=== PATIENT | female | born 1940 | race Caucasian/White ===

== ENCOUNTER 2016-10-28 10:02 | Observation (INO) | payer MEDICARE, OTHER ==
[~2016-10-28] VITALS: Ht 154.9 cm; Wt 90.1 kg
[2016-10-28] MEDS ORDERED: ONDANSETRON 4MG/2ML VIAL (J2405) IV ONE (11:45)
[2016-10-28] MEDS ORDERED: MORPHINE 4 MG/ML 1ML SYRINGE IV ONE ×2 (11:45→15:15)
[2016-10-28 11:51] LABS: BASO % 0.3 % (0.0-1.0); EOS # 0.2 K/mm3 (0.0-0.50); EOS % 2.3 % (0.0-3.0); LARGE UNSTAINED CELL # 0.1 K/mm3 (0.0-0.4); LARGE UNSTAINED CELL % 1.1 % (0.0-4.0); LYMPH # 2.3 K/mm3 (1.5-4.5); LYMPH % 25.4 % (24.0-44.0); MEAN CORPUSCULAR HEMOGLOBIN 30.7 pg (27.0-33.0); MEAN CORPUSCULAR HGB CONC 34.9 g/dl (32.0-36.5); MEAN CORPUSCULAR VOLUME 88.1 fl (80.0-96.0); MONO # 0.3 K/mm3 (0.0-0.8); MONO % 3.6 % (0.0-5.0); NEUTROPHILS # 5.9 K/mm3 (1.8-7.7); NEUTROPHILS % 67.4 % (36.0-66.0); PLATELET COUNT, AUTOMATED 229 k/mm3 (150-450); WHITE BLOOD COUNT 8.8 K/mm3 (4.0-10.0)
[2016-10-28 12:06] LABS: ANION GAP 5 MEQ/L (8-16); BLOOD UREA NITROGEN 21 MG/DL (7-18); CALCIUM LEVEL 8.7 MG/DL (8.8-10.2); CARBON DIOXIDE LEVEL 31 MEQ/L (21-32); CHLORIDE LEVEL 105 MEQ/L (98-107); CREATININE FOR GFR 0.72 MG/DL (0.55-1.02); GLOMERULAR FILTRATION RATE > 60.0 (>39); GLUCOSE, FASTING 79 MG/DL (83-110); POTASSIUM SERUM 3.8 MEQ/L (3.5-5.1); SODIUM LEVEL 141 MEQ/L (136-145)
--- NOTE | 2016-10-28 12:10 | REP ---
Clinical: Left lower extremity pain. Comparison: 09/25/2013. Technique: Bland scale and color Doppler evaluation using linear high frequency transducer. Findings: There is nonocclusive thrombus in the common femoral vein and proximal femoral vein which is nonspecific and can not exclude acute versus chronic deep venous thrombosis. Ultrasound examination of the left lower extremity deep venous structures from the common femoral vein to the popliteal vein demonstrates otherwise normal compressibility, flow and wave patterns in response to respiration and augmentation. Impression: Nonocclusive thrombus in the common femoral vein and proximal superficial femoral vein corresponding to areas of previous deep venous thrombosis on examination dated 09/25/2013. These findings are nonspecific and acute versus chronic DVT cannot be excluded. Signed by Jason Neville MD 10/28/2016 12:01 P
[2016-10-28 13:19] LABS: ERYTHROCYTE SEDIMENTATION RATE 48 mm/hr (0-30)
[2016-10-28] MEDS ORDERED: RIVAROXABAN 10 MG TAB (XARELTO) PO ONE (15:15)
[2016-10-28] MEDS ORDERED: BISACODYL 10 MG SUPP PR PRN (16:00)
[2016-10-28] MEDS ORDERED: ONDANSETRON 4MG/2ML VIAL (J2405) IV PRN (16:00)
[2016-10-28] MEDS ORDERED: BROM0.07 OD (16:14)
[2016-10-28] MEDS ORDERED: ASPI81TA7 PO (16:14)
[2016-10-28] MEDS ORDERED: VITA100066 PO (16:14)
[2016-10-28] MEDS ORDERED: OCUVTAB PO (16:14)
[2016-10-28] MEDS ORDERED: ZETI10TA2 PO (16:14)
[2016-10-28] MEDS ORDERED: REFRSOL OU (16:14)
[2016-10-28] MEDS ORDERED: IRBE150T14 PO (16:14)
[2016-10-28] MEDS ORDERED: PRED1SUS OD (16:14)
[2016-10-28] MEDS ORDERED: BESI0.6S OD (16:14)
[2016-10-28] MEDS ORDERED: VITA10002 PO (16:14)
[2016-10-28] MEDS ORDERED: PANT40TA2 PO (16:14)
--- NOTE | 2016-10-28 18:02 | HPE ---
DATE OF ADMISSION: 10/28/2016 PRIMARY CARE PROVIDER: Aishwarya Tidwell NP CHIEF COMPLAINT: Leg and back pain. HISTORY OF PRESENT ILLNESS: Ms. García is a 76-year-old female with past medical history significant for deep venous thrombosis (DVT) in 2013, hypertension, spinal stenosis, hyperparathyroidism, hypercholesterolemia, gastroesophageal reflux disease and fibromyalgia who presents to the emergency department complaining of leg and back pain. The patient reports that she has history of spinal stenosis and usually certain activities will aggravate her pain. She reports that on Friday she decided to shampoo the carpet after her dog made a mass and the next day she woke up with bilateral back pain as well as pain radiating down her left lower extremity. She does have history of occasional muscle spasms and when this occurs the pain usually radiates down the posterior leg. However, she noticed that she had sharp burning pain in the anterior left leg into her foot which is similar to when she had her previous DVT in 2013. She reports that she took Advil as well as Flexeril which did not provide any significant benefit. She reports that she had some old Percocet from about a year and a half ago after having surgery and was taking that every 4 hours. She states that it did take the edge off until she moved and then her pain was further aggravated. Reports that it was difficult to ambulate. When she was previously diagnosed with the DVT she reports that she completed about 6 months of anticoagulation. She denies any increased swelling in the lower extremity. No increased weakness. However, the pain makes it difficult to ambulate. She has chronic urinary incontinence, stress induced. No change in her bladder function. Bowels have been moving normally without any incontinence or retention. She denies any saddle anesthesia or paresthesias. No fevers, chills, chest pain / pressure, palpitations, shortness of breath, nausea, vomiting, abdominal pain, diarrhea, hematochezia, melena, rash, any lesions or syncope. The patient denies any periods of immobility. No history of malignancy. No recent travel and no sick contacts. In the emergency department she was given two doses of morphine, Zofran as well as Xarelto. Laboratory assessment revealed elevated ESR at 48, mildly elevated CRP of 1.17. She had an ultrasound of the lower extremity which revealed a nonocclusive thrombus in the common femoral vein and proximal superficial femoral vein corresponding to areas of previous DVT. Findings could not specify if this was acute versus chronic. Given her significant pain hospitalist service was called to admit. PAST MEDICAL HISTORY: 1. DVT in 2013, treated with 6-month anticoagulation with Xarelto. 2. Hypertension. 3. History of spinal stenosis and disc bulging. 4. History of hyperparathyroidism status post parathyroidectomy. 5. History of fibromyalgia. 6. Hypercholesterolemia. 7. History of nephrolithiasis. PAST SURGICAL HISTORY: 1. Parathyroidectomy. 2. Cholecystectomy. 3. Appendectomy. 4. Tonsillectomy. 5. Hysterectomy. 6. Left knee surgery for a meniscus injury. 7. Plantar fasciotomy. 8. Hemorrhoidectomy. 9. Left cataract surgery on 10/22/2016. HOME MEDICATIONS: - aspirin 81 mg by mouth daily - vitamin D 1000 units by mouth daily - vitamin B12 1000 mcg by mouth daily - Zetia 10 mg by mouth daily - multivitamins one tablet by mouth daily - Protonix 40 mg by mouth daily - prednisolone acetate one drop in left eye four times daily - Besivance one drop in left eye three times daily - BromSite one drop twice daily - irbesartan/hydrochlorothiazide one tablet by mouth daily - Refresh Optive solution one drop in each eye as needed ALLERGIES: VICODIN (hives), CODEINE SULFATE (rash), QUINOLONE (reaction unknown), SULFA DRUGS (reaction unknown). SOCIAL HISTORY: The patient denies any tobacco use. No alcohol or illicit drug use. Lives with her . One dog and two cats in the home. No recent travel outside of [place]. She does occasionally travel to [place] to see her daughter but has not done this recently. FAMILY HISTORY: Son has history of diabetes. Mother and father had Alzheimer's disease. Father had history of diabetes. She had a grandmother with heart issues. REVIEW OF SYSTEMS: GENERAL: No fevers, chills, sweats, significant weight changes. HEENT: No headache, lightheadedness, dizziness. No blurry or double vision. No acute changes to vision or hearing. HEART: Denies any chest pain / pressure, palpitations, shortness of breath with exertion. No orthopnea or paroxysmal nocturnal dyspnea. PULMONARY: No shortness of breath or cough. No hemoptysis. GASTROINTESTINAL: No nausea or vomiting, diarrhea, constipation, abdominal pain, hematochezia or melena. GENITOURINARY: No change in urinary frequency. No dysuria or hematuria. She does give history of recently passing a kidney stone and had microscopic hematuria at that time. ENDOCRINE: No history of diabetes but does have history of parathyroid adenomas for which she underwent parathyroidectomy. MUSCULOSKELETAL: Positive for lower back pain as well as left leg pain. INTEGUMENT: No unusual rashes or skin lesions. NEUROLOGIC: No paresthesias. No increased weakness. No syncope. No history of CVA. PHYSICAL EXAMINATION: VITAL SIGNS: Temperature 97.0, pulse 88, respiratory rate 16, blood pressure 143/65, pulse oximetry 97% on room air. GENERAL: The patient is alert and oriented, in no acute distress. HEENT: Normocephalic, atraumatic. Extraocular muscles are intact. Pupils are equally round and reactive to light. No scleral icterus. Moist mucosa. NECK: Supple. No cervical lymphadenopathy. No thyromegaly appreciated. HEART: Normal S1, S2. Regular rate and rhythm. I do not appreciate a murmur. LUNGS: Clear to auscultation bilaterally. No rales, rhonchi or wheezing. ABDOMEN: Obese, soft, nontender. Bowel sounds are present. No rebound, guarding or rigidity. EXTREMITIES: No cyanosis. No significant lower extremity edema. Positive pedal pulses bilaterally. SKIN: Warm and dry. No rashes noted. NEUROLOGIC: No focal deficits. Cranial nerves II-XII are grossly intact. Muscle strength 5/5 bilaterally. Sensation intact. Good tone. Reflexes symmetric. LABORATORY DATA: WBC 8.8, hemoglobin 15.2, hematocrit 43.7, platelet count 229, ESR 48, sodium 141, potassium 3.8, chloride 105, carbon dioxide 31, anion gap 5, BUN 21, creatinine 0.72, GFR greater than 60, fasting glucose 79, calcium 8.7, C-reactive protein 1.17. IMAGING STUDIES: The patient had a vascular ultrasound of the left lower extremity which revealed a nonocclusive thrombus in the common femoral vein and proximal superficial femoral vein corresponding to areas of previous DVT on exam dated September 2013. These findings are nonspecific and acute versus chronic DVT could not be excluded. ASSESSMENT/PLAN: 1. Left lower extremity deep venous thrombosis (DVT). The patient will be placed on Xarelto. She has history of previous DVT in 2013 for which she was bridged with Lovenox and then started on Xarelto. She reports that she completed about 6 months of treatment. Ultrasound could not exclude between acute and chronic DVT. Pain medication as needed. 2. Acute on chronic back pain. The patient reports history of spinal stenosis and disc bulging. She reports that she cleaned her carpet on Friday and then her back and leg pain started on . Will obtain an MRI of the lumbar spine. Pain medication as needed. 3. Hypertension. The patient takes irbesartan/hydrochlorothiazide. 4. Hypercholesterolemia. Continue with Zetia. 5. History of hyperparathyroidism with parathyroid adenoma status post parathyroidectomy. 6. History of fibromyalgia. Stable. 7. Gastroesophageal reflux disease (GERD). Continue with Protonix. 8. Deep venous thrombosis (DVT) prophylaxis. The patient is on Xarelto. 9. Code status. The patient reports that she has a DO NOT RESUSCITATE and will have her bring that in. Patient will be admitted as observation to medical/surgical. Dr. Zazueta to take over her care in the morning. My preceptor for this patient encounter was Dr. Jovanna Manning. The preceptor was physically present in the building during the encounter and was fully available. As needed, all aspects of the patient interview, examination, medical decision making process, and medical care plan development were reviewed and approved by the preceptor. The preceptor is aware and concurs with the plan as stated in the body of this note and will attest to such by her cosignature.
[2016-10-28 18:45] VITALS: BP 157/67
[2016-10-28] MEDS: PERCOCET 5MG/325MG TAB PO PRN (19:20)
[2016-10-28 19:41] LABS: INR 1.5
[2016-10-28] MEDS: BESIFLOXACIN 0.6% OD SCH ×2 (20:37→20:40)
[2016-10-28] MEDS: SENOKOT S TAB PO SCH (20:37)
[2016-10-28] MEDS: prednisoLONE ACET 1% OPHTH SUSP 5ML OD SCH (20:37)
[2016-10-28] MEDS: BROMFENAC 0.075% OD SCH (20:38)
[2016-10-28] MEDS ORDERED: ENTER DRUG NAME HERE (PATIENT'S OWN MED) OD SCH ×2 (21:00)
[2016-10-28 22:00] VITALS: BP 132/72
[2016-10-29] MEDS: PERCOCET 5MG/325MG TAB PO PRN ×4 (05:38→19:56)
[2016-10-29 06:00] VITALS: BP 132/70
[2016-10-29 06:56] LABS: MEAN CORPUSCULAR HEMOGLOBIN 29.9 pg (27.0-33.0); MEAN CORPUSCULAR HGB CONC 33.6 g/dl (32.0-36.5); MEAN CORPUSCULAR VOLUME 89.1 fl (80.0-96.0); RED CELL DISTRIBUTION WIDTH 13.3 % (11.5-14.5); WHITE BLOOD COUNT 8.1 K/mm3 (4.0-10.0)
[2016-10-29 07:01] LABS: INR 1.25
[2016-10-29 07:14] LABS: ANION GAP 5 MEQ/L (8-16); BLOOD UREA NITROGEN 18 MG/DL (7-18); CALCIUM LEVEL 8.4 MG/DL (8.8-10.2); CARBON DIOXIDE LEVEL 30 MEQ/L (21-32); CHLORIDE LEVEL 103 MEQ/L (98-107); GLOMERULAR FILTRATION RATE > 60.0 (>39); GLUCOSE, FASTING 105 MG/DL (83-110); POTASSIUM SERUM 4.4 MEQ/L (3.5-5.1); SODIUM LEVEL 138 MEQ/L (136-145)
[2016-10-29 08:02] VITALS: BP 132/70
[2016-10-29] MEDS: SENOKOT S TAB PO SCH ×2 (08:02→19:54)
[2016-10-29] MEDS: EZETIMIBE 10 MG TAB (ZETIA) PO SCH (08:02)
[2016-10-29] MEDS: PANTOPRAZOLE 40MG TAB (PROTONIX) PO SCH (08:02)
[2016-10-29] MEDS: RIVAROXABAN 15 MG TAB (XARELTO) PO SCH ×2 (08:02→17:36)
[2016-10-29] MEDS: IRBESARTAN 75MG TABLET PO SCH (08:02)
[2016-10-29] MEDS: prednisoLONE ACET 1% OPHTH SUSP 5ML OD SCH ×4 (08:05→19:58)
[2016-10-29] MEDS: BESIFLOXACIN 0.6% OD SCH ×3 (08:06→19:57)
[2016-10-29] MEDS: BROMFENAC 0.075% OD SCH ×2 (08:06→19:56)
--- NOTE | 2016-10-29 12:12 | IPNPDOC ---
Subjective Date Seen The patient was seen on 10/29/16. Subjective Chief Complaint/HPI The patient is a 76-year-old female admitted with a reason for visit of Central Stenosis Of Spinal Canal,Dvt. Objective Physical Examination General Exam: Positive: Alert, Cooperative, No Acute Distress Eye Exam: Positive: Conjunctiva & lids normal, EOMI, Negative: Sclera icteric ENT Exam: Positive: Mucous membr. moist/pink, Pharynx Normal Neck Exam: Positive: Supple, Negative: thyromegaly Chest Exam: Positive: Clear to auscultation, Normal air movement Heart Exam: Positive: Rate Normal, Regular Rhythm, Normal S1, Normal S2, Negative: Murmurs Abdomen Exam: Positive: Normal bowel sounds, Soft, Negative: Tenderness Extremity Exam: Positive: Normal pulses, Tenderness (left lower extremity), Negative: Cyanosis, Edema Skin Exam: Positive: Nl turgor and temperature, Negative: Rash Neuro Exam: Positive: Normal Speech, Cranial Nerves 3-12 NL Psych Exam: Positive: Mental status NL, Oriented x 3 Assessment /Plan Problems (1) DVT (deep venous thrombosis) Status: Acute Problem Specific Plan: Monitor Clinically Problem Text: * Has previous history of DVT in 2013, completed 6 months for Xarelto * Vascular ultrasound performed on 10/28 revealed nonocclusive thrombus in the common femoral vein and proximal superficial femoral vein corresponding areas of previous DVT on exam stated in 2013. Findings are nonspecific and acute versus chronic DVT could not be excluded * Continue with Xarelto * Hypercoagulable workup pending (2) Acute exacerbation of chronic low back pain Status: Acute Problem Specific Plan: Monitor Clinically Problem Text: * Patient reports that pain developed after she cleaned the carpet. * Has history of spinal stenosis and disc bulging * Awaiting results of lumbar MRI * Pain medication as needed. Physical therapy. * No neurological deficits. No paresthesias or saddle anesthesia. No bowel or bladder dysfunction (3) History of spinal stenosis Status: Chronic Problem Specific Plan: Monitor Clinically Problem Text: * Patient reports increased back pain * Awaiting MRI results (4) Hypertension Status: Chronic Problem Specific Plan: Monitor Clinically Problem Text: * Continue irbesartan (5) Hypercholesterolemia Status: Chronic Problem Specific Plan: Monitor Clinically Problem Text: * Continue Zetia (6) History of hyperparathyroidism Status: Chronic Problem Specific Plan: Monitor Clinically Problem Text: * With history of parathyroid adenoma status post parathyroidectomy (7) GERD (gastroesophageal reflux disease) Status: Chronic Problem Specific Plan: Monitor Clinically Problem Text: * Continue Protonix (8) History of left cataract surgery Status: Chronic Problem Specific Plan: Monitor Clinically Problem Text: * Continue with eyedrops to left eye Plan/VTE VTE Prophylaxis Ordered?: Yes (xarelto) VS, I&O, 24H, Fishbone Vital Signs/I&O Vital Signs Date Time Temp Pulse Resp B/P (MAP) Pulse Ox O2 Delivery O2 Flow Rate FiO2 10/29/16 10:38 18 Room Air 10/29/16 08:02 132/70 10/29/16 06:00 98.3 89 98 I&O- Last 24 Hours up to 6 AM 10/29/16 06:00 Intake Total 175 ml Output Total 200 ml Balance -25 ml Laboratory Data CBC/BMP Laboratory Tests 10/29/16 06:29 Red Blood Count 4.50, Mean Corpuscular Volume 89.1, Mean Corpuscular Hemoglobin 29.9, Mean Corpuscular Hemoglobin Concent 33.6, Red Cell Distribution Width 13.3 , Calcium Level 8.4 L GME ATTESTATION GME ATTESTATION My preceptor for this patient encounter was physically present in the building during the encounter and was fully available. As needed, all aspects of the patient interview, examination, medical decision making process, and medical care plan development were reviewed and approved by the preceptor. Preceptor is aware and concurs with the plan as stated in the body of this note and will attest to such by his/her cosignature. ANNETTE COTA DO October 29, 2016 12:12
[2016-10-29 14:00] VITALS: BP 118/60
--- NOTE | 2016-10-29 14:40 | REP ---
MRI LUMBAR SPINE WITHOUT CONTRAST: HISTORY: Back pain. COMPARISON: 09/23/2012 Decreased signal intensity on T2-weighted images is present in the lumbar intervertebral discs. The discs are decreased in height. These findings are consistent with disc degeneration. There is no disc bulge or herniation at the L1-2 and L5-S1 levels. There is hypertrophy of the posterior articulating facets at the L5-S1 level. The nerves exit the neural foramina without compression. Fluid is present in the left L5-S1 facet joint. A diffuse disc bulge is present at the L2-3 level. There is hypertrophy of the ligamenta flava and posterior articulating facets. These findings produce minimal central canal stenosis. The L2 nerves exit the neural foramina without compression. A diffuse disc bulge is present at the L3-4 level. There is hypertrophy of the ligamenta flava and posterior articulating facets. These findings produce minimal central canal stenosis. The L3 nerves exit the neural foramina without compression. A diffuse disc bulge is present at the L4-5 level. There is hypertrophy of the ligamenta flava and posterior articulating facets. There are 5 mm of grade 1 spondylolisthesis of L4 on 5. These findings produce mild central canal stenosis. The L4 nerves exit the neural foramina without compression. Fluid is present in the left L4-5 facet joint. The conus medullaris is normal in appearance terminating at the level of the L1 vertebral body. Increased signal intensity on T2-weighted images is present in the end plates of the L2 through L4 vertebral bodies. This represents degenerative change. IMPRESSION: 1. Minimal central canal stenosis at the L2-3 and L3-4 levels secondary to disc bulge, ligamentous and facet hypertrophy. 2. Mild central canal stenosis at the L4-5 level secondary to disc bulge, ligamentous and facet hypertrophy and grade 1 spondylolisthesis. There is compression of the right L4 nerve in the neural foramen. There is no significant change compared to the previous study. Signed by James Quintero MD 10/29/2016 11:56 A
[2016-10-29 22:00] VITALS: BP 129/64
[2016-10-30] MEDS: PERCOCET 5MG/325MG TAB PO PRN ×2 (03:43→08:35)
[2016-10-30 06:00] VITALS: BP 106/52
[2016-10-30 06:29] LABS: MEAN CORPUSCULAR HEMOGLOBIN 30.6 pg (27.0-33.0); MEAN CORPUSCULAR HGB CONC 34.5 g/dl (32.0-36.5); MEAN CORPUSCULAR VOLUME 88.7 fl (80.0-96.0); WHITE BLOOD COUNT 6.7 K/mm3 (4.0-10.0)
[2016-10-30 06:39] LABS: ANION GAP 7 MEQ/L (8-16); BLOOD UREA NITROGEN 20 MG/DL (7-18); CALCIUM LEVEL 7.8 MG/DL (8.8-10.2); CARBON DIOXIDE LEVEL 28 MEQ/L (21-32); CHLORIDE LEVEL 106 MEQ/L (98-107); GLOMERULAR FILTRATION RATE > 60.0 (>39); GLUCOSE, FASTING 95 MG/DL (83-110); POTASSIUM SERUM 3.9 MEQ/L (3.5-5.1); SODIUM LEVEL 141 MEQ/L (136-145)
[2016-10-30] MEDS: PANTOPRAZOLE 40MG TAB (PROTONIX) PO SCH (08:36)
[2016-10-30] MEDS: SENOKOT S TAB PO SCH (08:36)
[2016-10-30] MEDS: EZETIMIBE 10 MG TAB (ZETIA) PO SCH (08:36)
[2016-10-30] MEDS: RIVAROXABAN 15 MG TAB (XARELTO) PO SCH (08:36)
[2016-10-30] MEDS: BROMFENAC 0.075% OD SCH (08:38)
[2016-10-30] MEDS: IRBESARTAN 75MG TABLET PO SCH (08:42)
[2016-10-30] MEDS ORDERED: PRED1SUS OD (08:59)
[2016-10-30] MEDS ORDERED: XARE15TA PO (08:59)
[2016-10-30] MEDS ORDERED: XARE20TA PO (08:59)
[2016-10-30] MEDS ORDERED: PERCOCET PO (08:59)
[2016-10-30] MEDS ORDERED: prednisoLONE ACET 1% OPHTH SUSP 5ML OD SCH (09:00)
--- NOTE | 2016-10-30 17:24 | DSES ---
DATE OF ADMISSION: 10/28/2016 DATE OF DISCHARGE: 10/30/2016 DISCHARGE DIAGNOSES: 1. Deep vein thrombosis (DVT) of left lower extremity. 2. Chronic back pain. 3. History of spinal stenosis. 4. Hypertension. 5. Hypercholesterolemia. 6. Gastroesophageal reflux disease (GERD). 7. History of hyperparathyroidism status post parathyroidectomy. 8. History of left cataract surgery. 9. History of fibromyalgia. DISCHARGE MEDICATIONS: - Xarelto 50 mg by mouth twice daily times 21 days - Xarelto 20 mg daily - Percocet one tablet by mouth every four hours as needed - BromSite one drop in eye twice daily - vitamin D 1000 units by mouth daily - vitamin B12 1000 mcg by mouth daily - Zetia 10 mg by mouth daily - irbesartan/hydrochlorothiazide one tablet by mouth daily - multivitamin one tablet by mouth daily - Protonix 40 mg by mouth daily - Refresh Optive one drop in each eye as needed - prednisolone one drop in left eye four times daily DISCONTINUED MEDICATIONS: - Besivance eye drops - aspirin 81 mg daily BRIEF HOSPITAL COURSE: The patient presented to the emergency department with complaints of leg pain and back pain. She reports a history of spinal stenosis and usually certain activities will aggravate her back pain. She reports that Friday she decided to shampoo the renard and the next day her pain was exacerbated. She also reported sharp, burning pain in the anterior left leg down to her foot with history of previous deep vein thrombosis (DVT) in 2013. She took Advil as well as Flexeril which did not provide any significant relief. She denied any increased swelling in the lower extremity. No increase weakness. No bowel or bladder changes. No saddle anesthesia or paresthesias. No fever, chills, shortness of breath, nausea, vomiting, abdominal pain, diarrhea, chest pain, or any other acute symptoms. In the emergency department, she was given pain medication, antiemetics, and admitted to the hospital. She had ultrasound of the lower extremity performed which revealed nonocclusive thrombus in the common femoral vein and proximal superficial vein corresponding to areas of previous DVT. The patient was initiated on Xarelto. She also had an MRI of her lumbar spine which revealed minimal central canal stenosis at L2-3 and L3-4. Mild central canal stenosis at L4-5 secondary to disc bulging, hypertrophy and grade 1 spondylolisthesis. There was compression of the right L4 nerve in the neuroforamen. No significant change from previous study. On the day of admission, the patient reports that her back pain has significantly improved. She did continue to have some leg pain. No significant swelling or weakness. She denied any fevers, chills, chest pain/pressure, palpitations, shortness of breath, nausea, vomiting, abdominal pain, diarrhea, headache, dizziness. LABORATORY DATA ON DISCHARGE: WBC 6.7, hemoglobin 13.7, hematocrit 39.6, platelet count 225. Sodium 141, potassium 3.9, chloride 106, carbon dioxide 28, anion gap 7, BUN 20, creatinine 0.8, GFR greater than 60, fasting glucose 95, calcium 7.8. IMAGING STUDIES: As stated above. PHYSICAL EXAMINATION: VITAL SIGNS: Temperature 99.1, pulse 81, respiratory rate 15, blood pressure 106/52, pulse oximetry 93% on room air. GENERAL: The patient is alert and oriented times three, in no acute distress. HEENT: Normocephalic, atraumatic. Extraocular muscles are intact. Moist mucosa. NECK: Supple. No cervical lymphadenopathy. No thyromegaly. HEART: Normal S1, S2, regular rate and rhythm. No murmur appreciated. LUNGS: Clear to auscultation bilaterally. No rales, rhonchi or wheezing. ABDOMEN: Soft, nontender, nondistended. Positive bowel sounds. EXTREMITIES: No cyanosis or edema. Positive pedal pulses bilaterally. Left anterior thigh is tender to palpation. SKIN: Warm and dry. No rashes noted. NEUROLOGIC: No focal deficits. Cranial nerves II-XII are grossly intact. Motor and sensation intact. DISCHARGE INSTRUCTIONS: The patient is discharged in stable condition. She is to followup with her primary care physician within one week. Activity as tolerated. Low-sodium, low-cholesterol diet. Return to the emergency department with any worsening or recurring symptoms. She is to followup with her primary care physician in terms of resuming her aspirin. Followup with ophthalmology for eye drop care and rescheduling her other cataract surgery. THINGS TO FOLLOWUP ON: Hypercoagulable workup is still pending. DISCHARGE TIME: Greater than 30 minutes. My preceptor for this patient encounter was Dr. Alia Zazueta. The preceptor was physically present in the building during the encounter and was fully available as needed. All aspects of the patient interview, examination, medical decision making process, and medical care plan development were reviewed and approved by the preceptor. The preceptor is aware and concurs with the plan as stated in the body of this note and will attest to such by his/her co-signature.
== END 2016-10-30 11:41 | disposition home or self-care (01) ==
LOC: EDSEX 10:02 → EDBD 10:02 → M ED 11:32 → M ED INP 15:57 → M MSPAV 18:35
PROVIDERS: ADMIT Internal Medicine Nephrology; ATTEND Internal Medicine
DX: I82.412 Acute embolism and thrombosis of left femoral vein (principal); M48.06 Spinal stenosis, lumbar region; I10 Essential (primary) hypertension; E78.00 Pure hypercholesterolemia, unspecified; E21.3 Hyperparathyroidism, unspecified; K21.9 Gastro-esophageal reflux disease without esophagitis; Z79.899 Other long term (current) drug therapy; M79.7 Fibromyalgia; Z88.2 Allergy status to sulfonamides; Z88.5 Allergy status to narcotic agent
CPT/HCPCS: 36415; 72148; 80048; 81001; 81240; 81241; 84311; 85025; 85027; 85300; 85301; 85303; 85305; 85598; 85610; 85613; 85652; 85730; 86140; 86147; 93971; 96374; 96375; 96376; 97161; 99284; G0378; G8978; G8979; G8980; J2405

== ENCOUNTER → 2017-06-16 | Outpatient (REF) | payer OTHER | LOC: M LAB REF 16:25 | DX: R31.9 Hematuria, unspecified (principal) ==

== ENCOUNTER → 2018-02-17 | Outpatient (REF) | payer OTHER | LOC: M LAB REF 18:05 | DX: L82.1 Other seborrheic keratosis (principal); L72.0 Epidermal cyst; D23.12 Other benign neoplasm of skin of left eyelid, including canthus ==

== ENCOUNTER → 2018-09-10 | Outpatient (REF) | payer OTHER ==
[~2018-09-10] MED LIST: ASPI1TAB15 PO; BESI0.6S OD; BROM0.07 OD; IRBE150T14 PO; OCUVTAB PO; PANT40TA3 PO; PERCOCET PO; PRED1SUS2 OD; REFRSOL OU; VITA10002 PO; VITA100066 PO; XARE15TA PO; XARE20TA PO; ZETI10TA30 PO
== END ==
LOC: M LAB REF 12:53
PROVIDERS: ATTEND Nurse Practitioner Adult Health
DX: R31.9 Hematuria, unspecified (principal)

== ENCOUNTER → 2020-02-23 | Outpatient (REF) | payer OTHER ==
[~2020-02-23] MED LIST changes: +ASPI-546 PO; -ASPI1TAB15 PO; +CYAN100049 PO; +PANT40TA29 PO; -PANT40TA3 PO; -VITA10002 PO; +ZETI10TA16 PO; -ZETI10TA30 PO
== END ==
LOC: M LAB REF 09:49
PROVIDERS: ATTEND Internal Medicine Gastroenterology
DX: K59.1 Functional diarrhea (principal); R10.31 Right lower quadrant pain; K21.9 Gastro-esophageal reflux disease without esophagitis

== ENCOUNTER 2020-07-25 13:49 | Emergency (ER) | payer OTHER ==
[~2020-07-25] VITALS: Ht 154.9 cm; Wt 89.1 kg
[2020-07-25] MEDS ORDERED: ACET-908 PO (14:06)
[2020-07-25] MEDS ORDERED: ACET-683 PO (14:06)
[2020-07-25] MEDS ORDERED: CARI1TAB7 (14:06)
[2020-07-25] MEDS ORDERED: PERCOCET 5MG/325MG TAB PO ONE (14:30)
[2020-07-25] MEDS ORDERED: methocarbamoL 750 MG TAB PO ONE (14:30)
--- NOTE | 2020-07-25 14:58 | REP ---
INDICATION: inc pain/r/o compression fx. COMPARISON: Comparison radiographs are from 13 February 2012.. TECHNIQUE: AP and lateral views of the lumbar spine are augmented by a lateral spot at L5-S1. FINDINGS: Lumbar vertebral body heights are preserved on lateral radiograph. No fracture or collapse is seen. There are degenerative disc changes with narrowing and spurring associated with the 4 5, 3 4, and 2 3 disc spaces. This is only slightly more prominent than on the 28/05 prior radiograph. There are clips in right upper quadrant. A moderate levoconvex lumbar scoliotic curve is seen. There is osteoarthritic facet hypertrophy and sclerosis at L4-5 and L5-S1 bilaterally and on the right at L3-4. The sacrum and SI joints are intact. Psoas margins are symmetric. IMPRESSION: No evidence of lumbar spine fracture. Levoconvex scoliotic curvature. Degenerative spondylosis changes. <Electronically signed by Sridhar Majano > 07/25/20 [id number]
--- NOTE | 2020-07-25 15:13 | REP ---
INDICATION: pain/hx dvt in same leg. COMPARISON: Comparison study October [id number].. TECHNIQUE: Left lower extremity duplex venous ultrasound is performed. FINDINGS: The deep veins are anechoic and fully compressible from the groin to the popliteal fossa in the left lower extremity. Color flow imaging is homogeneous. Spectral Doppler interrogation demonstrates intact respiratory variation in flow and normal manual augmentation of flow. There is no evidence of deep vein thrombosis. IMPRESSION: Negative left lower extremity duplex venous ultrasound. No evidence of deep vein thrombosis. <Electronically signed by Sridhar Majano > 07/25/20 [id number]
--- OUTSIDE RECORDS SUMMARY | 2020-07-25 15:14 | CCD | Continuity of Care Document ---
Author Author Raven Tidwell Organization Unknown Address [address] [address] Phone [phone] Care Team Providers Care Repairer Shoe Sticks Name Role Phone Aishwarya Tidwell AUTM [phone] Makayla Alcazar MD AUTM [phone] Rosaline Mercado - Gastroenterolgy AUTM Problems Active Problems Provider Date Osteoarthritis TYRESE Gonzalez Onset: 01/30/2011 Benign essential hypertension TYRESE Gonzalez Onset: Pure hypercholesterolemia TYRESE Gonzalez Onset: 2010 Acute upper respiratory infection TYRESE Gonzalez Onset : 01/30/2011 Depressive disorder TYRESE Gonzalez Onset: 01/30/2011 Insomnia TYRESE Gonzalez Onset: 07/09/2011 Essential hypertension TYRESE Gonzalez Onset: 6 Social History Type Date Description Comments Sex Unknown ETOH Use Never used alcohol Tobacco Use Start: Unknown Patient has never smoked Allergies, Adverse Reactions, Alerts Active Allergies Reaction Severity Comments Date Codeine HIVES 08/29/2010 Sulfa Rash 10/18/2016 Vicodin Hives 10/18/2016 Medications Active Medications SIG Qnty Indications Ordering Provide r Date Heplisav-B 20mcg/0.5 ML Soln Prefill Syringe administer 0.5 ml Im, repeat in 1 month .500ml N TYRESE Koch 05/08/2020 Livalo 2mg Tablets 1 b y mouth every day 90tabs TYRESE Gonzalez 05/02/2020 Carisoprodol 350mg Tablets take one tablet by mouth two times a day as needed dx: m54.5 60tabs Selina Tidwell, ANP 04/11/2020 Toprol XL 25mg Tablets ER 24HR 1/2 by mouth every day 90tabs Aishwarya Tidwell, TYRESE 08/24/2018 Ketoconazole 2% Cream twice a day to rash for 14 days 60gm Aishwarya Tidwell, ANP 06/24/2017 Xarelto 10mg Tablets T marcelina 1 Tablet Daily 90tabs Aishwarya Tidwell, TYRESE 06/16/2017 Irbesartan-Hydrochlorothiazide 150-12.5mg Tablets 1 by mouth every day 30tabs Joe Emmanuel M.D. 03/26/2017 Compression BK Stockings wear daily 2pr Aishwarya Madrid icer, [facility] 01/02/2017 Vitamin D3 Super Strength 2000Unit Tablets 1 po qd Aishwarya Tidwell, TYRESE 013 Ocuvite Adult 50+ Capsules one pill po daily Unknown Welchol 625mg Tablets 2-3/day w/food Unknown Protonix 40mg Tablets DR 1 by mouth every morning Unknown History Medications Atorvastatin Calcium 40mg Tablets 1 by mouth every day 90tabs Aishwarya Tidwell, TYRESE 02/26/2020 - 02/28/2020 Medications Administered in Office Medication SIG Qnty Indications Ordering Provider Date Immunization Adminstration,1 Vaccine/Tox oid Injection Aishwarya Tidwell, TYRESE 018 Administration Of Flu Vaccine Inj ection Aishwarya Tidwell, TYRESE 04/13/2003 Immunizations CPT Code Status Date Vaccine Lot # U-Flu Given 02/12/2020 Influenza,Unspecified U-Flu Given 03/25/2019 Influenza,Unspecified [id number] Given 03/10/2018 Influenza Virus Vaccine, Quadrivalent (Cciiv4), Derived From Cell [id number] Q2037 Given 04/08/2016 Fluvirin Virus Vaccine 10382 01 Q2037 Given 04/06/2015 Fluvirin Virus Vaccine 08905 01 Q2037 Given 03/28/2014 Fluvirin Virus Vaccine 32715 21 38399 Given 07/21/2013 Pneumovax 23 [id number] Q2037 Given 04/17/2012 Fluvirin Virus Vaccine 90983 01 Q2037 Given 05/06/2011 Fluvirin Virus Vaccine 75783 Given 03/24/2009 Influenza Virus Vaccine 95581 Given 08/15/2008 Zoster Vaccine 92637 Given 05/16/2008 Influenza Virus Vaccine 57036 Given 04/09/2007 Influenza Virus Vaccine 03694 Given 05/14/2006 Influenza Virus Vaccine 55308 Given 04/13/2003 Influenza Virus Vaccine Vital Signs Date Vital Result Comment 05/08/2020 11:31am BP Systolic 140 mmHg BP Diastolic 74 mmHg Heart Rate 82 /min Height 61 inches 5'1" Weight 201.00 lb O2 % BldC Oximetry 96 % BMI (Body Mass Index) 38.0 kg/m2 04/11/2020 1:06pm BP Systolic 150 mmHg BP Diastolic 90 mmHg Heart Rate 82 /min Height 61 inches 5'1" Weight 199.00 lb O2 % BldC Oximetry 97 % BMI (Body Mass Index) 37.6 kg/m2 Results Test Acquired Date Facility Test Result H/L Range Note CBC W/Auto Differential 03/24/2020 [facility] [place] WBC 6.8 x10E3/uL 3.4-10.8 RBC 4.72 x10E6/uL 3.77-5.28 Hemoglobin 13.9 g/dL 11.1-15.9 Hematocrit 41.2 % 34.0-46.6 MCV 87 fL 79-97 MCH 29.4 pg 26.6-33.0 MCHC 33.7 g/dL 31.5-35.7 RDW 12.6 % 11.7-15.4 Platelets 256 x10E3/uL 150-450 Neutrophils 55 % Not Estab. Lymphs 37 % Not Estab. Monocytes 6 % Not Estab. Eos 2 % Not Estab. Basos 0 % Not Estab. Immature Cells TNP Neutrophils (Absolute) 3.7 x10E3/uL 1.4-7.0 Lymphs (Absolute) 2.5 x10E3/uL 0.7-3.1 Monocytes(Absolute) 0.4 x10E3/uL 0.1-0.9 Eos (Absolute) 0.1 x10E3/uL 0.0-0.4 Baso (Absolute) 0.0 x10E3/uL 0.0-0.2 Immature Granulocytes 0 % Not Estab. Immature Grans (Abs) 0.0 x10E3/uL 0.0-0.1 NRBC TNP Hematology Comments: NDP CMP 03/24/2020 [facility] Glucose 89 mg/dL 65-99 BUN 15 mg/dL 8-27 Creatinine 0.76 mg/dL 0.57-1.00 eGFR If NonAfricn Am 75 mL/min/1.73 >59 eGFR If Africn Am 87 mL/min/1.73 >59 BUN/Creatinine Ratio 20 12-28 Sodium 141 mmol/L 134-144 Potassium 3.9 mmol/L 3.5-5.2 Chloride 105 mmol/L 96-106 Carbon Dioxide, Total 24 mmol/L 20-29 Calcium 9.4 mg/dL 8.7-10.3 Protein, Total 6.2 g/dL 6.0-8.5 Albumin 4.0 g/dL 3.7-4.7 Globulin, Total 2.2 g/dL 1.5-4.5 A/G Ratio 1.8 1.2-2.2 Bilirubin, Total 0.4 mg/dL 0.0-1.2 Alkaline Phosphatase 66 IU/L 39-117 Ast (Sgot) 27 IU/L 0-40 Alt (SGPT) 37 IU/L High 0-32 Lipid Profile 03/24/2020 [facility] Cholesterol, Total 236 mg/dL High 100-199 Triglycerides 205 mg/dL High 0-149 HDL Cholesterol 50 mg/dL >39 VLDL Cholesterol Igor 37 mg/dL 5-40 LDL Chol Calc (Nih) 149 mg/dL High 0-99 Comment: [facility] Laboratory test finding 03/24/2020 [facility] Hemoglobin A1c 5.6 % 4.8-5.6 1 Laboratory test finding 03/24/2020 [facility] PDF [id number] SEE IMAGE Lipid Panel 02/24/2020 [facility] Cholesterol, Total 258 mg/dL High 100-199 Triglycerides 208 mg/dL High 0-149 HDL Cholesterol 52 mg/dL >39 VLDL Cholesterol Igor 38 mg/dL 5-40 LDL Chol Calc (Nih) 168 mg/dL High 0-99 Comment: [facility] Laboratory test finding 02/24/2020 [facility] PDF [id number] SEE IMAGE CBC With Differential/Platelet 12/28/2019 [facility] WBC 7.1 x10E3/uL 3.4-10.8 RBC 4.87 x10E6/uL 3.77-5.28 Hemoglobin 13.9 g/dL 11.1-15.9 Hematocrit 43.2 % 34.0-46.6 MCV 89 fL 79-97 MCH 28.5 pg 26.6-33.0 MCHC 32.2 g/dL 31.5-35.7 RDW 12.7 % 11.7-15.4 Platelets 256 x10E3/uL 150-450 Neutrophils 54 % Not Estab. Lymphs 36 % Not Estab. Monocytes 7 % Not Estab. Eos 2 % Not Estab. Basos 1 % Not Estab. Immature Cells TNP Neutrophils (Absolute) 3.8 x10E3/uL 1.4-7.0 Lymphs (Absolute) 2.6 x10E3/uL 0.7-3.1 Monocytes(Absolute) 0.5 x10E3/uL 0.1-0.9 Eos (Absolute) 0.1 x10E3/uL 0.0-0.4 Baso (Absolute) 0.1 x10E3/uL 0.0-0.2 Immature Granulocytes 0 % Not Estab. Immature Grans (Abs) 0.0 x10E3/uL 0.0-0.1 NRBC TNP Hematology Comments: TNP Metabolic Panel (14), Comprehensive 12/28/2019 [facility] Glucose 86 mg/dL 65-99 BUN 16 mg/dL 8-27 Creatinine 0.86 mg/dL 0.57-1.00 eGFR If NonAfricn Am 65 mL/min/1.73 >59 eGFR If Africn Am 75 mL/min/1.73 >59 BUN/Creatinine Ratio 19 12-28 Sodium 141 mmol/L 134-144 Potassium 3.9 mmol/L 3.5-5.2 Chloride 101 mmol/L 96-106 Carbon Dioxide, Total 25 mmol/L 20-29 Calcium 9.8 mg/dL 8.7-10.3 Protein, Total 6.5 g/dL 6.0-8.5 Albumin 4.2 g/dL 3.7-4.7 Globulin, Total 2.3 g/dL 1.5-4.5 A/G Ratio 1.8 1.2-2.2 Bilirubin, Total 0.4 mg/dL 0.0-1.2 Alkaline Phosphatase 69 IU/L 39-117 Ast (Sgot) 16 IU/L 0-40 Alt (SGPT) 18 IU/L 0-32 Hemoglobin A1c 12/28/2019 [facility] Hemoglobin A1c 5.7 % High 4.8-5.6 2 Laboratory test finding 12/28/2019 [facility] PDF [id number] SEE IMAGE 1 Prediabetes: 5.7 - 6.4 Diabetes: >6.4 Glycemic control for adults with diabetes: <7.0 2 Prediabetes: 5.7 - 6.4 Diabetes: >6.4 Glycemic control for adults with diabetes: <7.0 Procedures Date Code Description Status 05/13/2019 [id number] Mammogram Completed 04/13/2018 [id number] Mammogram Completed 08/19/2017 [id number] Diabetic Retinal Eye Exam Comple [facility] 04/11/2017 [id number] Mammogram Completed 02/15/2015 [id number] Bone Mineral Density Test Comple andrew 02/15/2015 [id number] Mammogram Completed 12/31/2013 [id number] Mammogram Completed 04/01/2012 [id number] Mammogram Completed 08/15/2011 [id number] Colonoscopy Completed 12/05/2009 [id number] Bone Mineral Density Test Comple andrew 12/05/2009 [id number] Mammogram Completed Medical Devices Description No Information Available Encounters Type Date Location Provider Dx Diagnosis Office Visit 05/08/2020 11:30a [facility] T[facility]well, ANP I10 Essential (primary) hypertension Z12.39 Encounter for ot screening for malignant neoplasm of breast K76.0 Fatty (change of) liver, not elsewhere classified E55.9 Vitamin D deficiency, unspec ified E66.09 Other obesity due to excess calories Z68.38 Body mass index [BMI] 38.0-3 8.9, adult Office Visit 04/11/2020 1:15p [facility], ANP I10 Essential (primary) hypertension E78.5 Hyperlipidemia, unspecified 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 Z79.01 USP (current) use of a nticoagulants R73.03 Prediabetes K21.9 Gastro-esophageal reflux dis ease without esophagitis K58.0 Irritable bowel syndrome wit h diarrhea E66.09 Other obesity due to excess calories Z68.37 Body mass index (BMI) 37.0-3 7.9, adult Assessments Date Code Description Provider 05/08/2020 I10 Essential (primary) hypertension Aishwarya Tidwell, [facility] 05/08/2020 Z12.39 Encounter for other screening for malignant neoplasm of breast Aishwarya Tidwell, TYRESE 05/08/2020 K76.0 Fatty (change of) liver, not els ewhere classified Aishwarya Tidwell, [facility] 05/08/2020 E55.9 Vitamin D deficiency, unspecifie d Aishwarya Tidwell, [facility] 05/08/2020 E66.09 Other obesity due to excess steve pedro luis Aishwarya Tidwell, [facility] 05/08/2020 Z68.38 Body mass index [BMI] 38.0-38.9, adult Aishwarya Tidwell, TYRESE 04/11/2020 I10 Essential (primary) hypertension Aishwarya Tidwell, [facility] 04/11/2020 E78.5 Hyperlipidemia, unspecified Talisha Tidwell, [facility] 04/11/2020 I82.502 Chronic embolism and thrombosis of unspecified deep veins of Aishwarya Tidwell, [facility] 04/11/2020 Z79.01 USP (current) use of antic oagulants TYRESE Gonzalez 04/11/2020 K21.9 Gastro-esophageal reflux disease without esophagitis Aishwarya Tidwell, TYRESE 04/11/2020 K58.0 Irritable bowel syndrome with di arrhea Aishwarya Tidwell, [facility] 04/11/2020 M15.9 Polyosteoarthritis, unspecified Aishwarya Tidwell, [facility] 12/09/2019 I10 Essential (primary) hypertension María Damon, HOSPITAL ATTENDANT 12/09/2019 E78.5 Hyperlipidemia, unspecified Mei Damon, [facility] 12/09/2019 I82.502 Chronic embolism and thrombosis of unspecified deep veins of María Damon, [facility] 12/09/2019 Z79.01 manager terminal (current) use of antic oagulants María Damon, [facility] 12/09/2019 R73.03 Prediabetes María Damon, F DRILLING SUPERVISOR 12/09/2019 K21.9 Gastro-esophageal reflux disease without esophagitis María Thompsonra [facility] 12/09/2019 K58.0 Irritable bowel syndrome with di arrhea María Nelson, [facility] 12/09/2019 E66.09 Other obesity due to excess steve pedro luis María Nelson, [facility] 12/09/2019 Z68.37 Body mass index (BMI) 37.0-37.9, adult YEHUDA Benoit Plan of Treatment Future Appointment(s):* 10/10/2020 1:00 pm - TYRESE Gonzalez at [facility] 05/08/2020 - TYRESE Gonzalez* I10 Essential (primary) hypertension * Z12.39 Encounter for other screening for malignant neoplasm of breast * K76.0 Fatty (change of) liver, not elsewhere classified * E55.9 Vitamin D deficiency, unspecified * E66.09 Other obesity due to excess calories * Z68.38 Body mass index [BMI] 38.0-38.9, adult * All * New Medication:* Heplisav-B 20 mcg/0.5ML - administer 0.5 ml Im, repeat in 1 month Functional Status Description No Information Available Mental Status Description No Information Available Referrals Refer to Reason for Referral Status Appt Date [facility] [employer] DRILLING SUPERVISOR CONSULT FOR MEDICAL NUTRI TION THERAPY DX: OBESITY, HYPERCHOLESTEROLEMIA Patient Notified 05/15/2020 [address] [facility] [place] [address] [phone] Rosaline Mercado MD CONSULT FOR IRRITABLE BOWEL SYNDROME Closed 01/12/[address] [place] [address] [place] [address] [phone]
--- OUTSIDE RECORDS SUMMARY | 2020-07-25 15:14 | CCD | Continuity of Care Document ---
Author Author Raven Tidwell Organization Unknown Address [address] [address] Phone [phone] Care Team Providers Care Competitive Shopper Name Role Phone Aishwarya Tidwell AUTM [phone] Makayla Alcazar MD AUTM [phone] Rosaline Mercado - Gastroenterolgy AUTM Problems Active [...] SIG Qnty Indications Ordering Provide r Date Livalo 2mg Tablets 1 b y mouth every day 90tabs TYRESE Gonzalez 05/02/2020 Carisoprodol 350mg Tablets take one tablet by mouth two times a day as needed dx: m54.5 60tabs TYRESE Urias 04/11/2020 Toprol XL 25mg Tablets ER 24HR 1/2 by mouth every day 90tabs Aishwarya Tidwell, TYRESE 08/24/2018 Ketoconazole 2% Cream twice a day to rash for 14 days 60gm Aishwarya Tidwell, TYRESE 06/24/2017 Xarelto 10mg Tablets T marcelina 1 Tablet Daily 90tabs Aishwarya Tidwell, TYRESE 06/16/2017 Irbesartan-Hydrochlorothiazide 150-12.5mg Tablets 1 by mouth every day 30tabs Joe Emmanuel M.D. 03/26/2017 Compression BK Stockings wear daily 2pr Aishwarya Madrid icer, TYRESE 01/02/2017 Vitamin D3 Super Strength 2000Unit Tablets 1 po qd Aishwarya Tidwell, TYREES 013 Ocuvite Adult 50+ Capsules one pill [...] Given 02/12/2020 Influenza,Unspecified U-Flu Given 03/25/2019 Influenza,Unspecified 75929 Given 03/10/2018 Influenza Virus Vaccine, Quadrivalent (Cciiv4), Derived From Cell [id number] Q2037 Given 04/08/2016 Fluvirin Virus Vaccine 22148 01 Q2037 Given 04/06/2015 Fluvirin Virus Vaccine 08610 01 Q2037 Given 03/28/2014 Fluvirin Virus Vaccine 65530 21 43005 Given 07/21/2013 Pneumovax 23 [id number] Q2037 Given 04/17/2012 Fluvirin Virus Vaccine 31978 01 Q2037 Given 05/06/2011 Fluvirin Virus Vaccine 66626 Given 03/24/2009 Influenza Virus Vaccine 83177 Given 08/15/2008 Zoster Vaccine 00686 Given 05/16/2008 Influenza Virus Vaccine 50724 Given 04/09/2007 Influenza Virus Vaccine 02010 Given 05/14/2006 Influenza Virus Vaccine 16489 Given 04/13/2003 Influenza Virus Vaccine Vital Signs [...] x10E3/uL 0.0-0.1 NRBC TNP Hematology Comments: TNP CMP 03/24/2020 [facility] Glucose 89 mg/dL [...] Calc (Nih) 149 mg/dL High 0-99 Comment: TNP Laboratory test finding 03/24/2020 [facility] Hemoglobin A1c 5.6 % 4.8-5.6 1 Laboratory test finding 03/24/2020 [facility] PDF [id number] SEE IMAGE Lipid Panel 02/24/2020 [facility] Cholesterol, Total 258 mg/dL High 100-199 Triglycerides 208 mg/dL High 0-149 HDL Cholesterol 52 mg/dL >39 VLDL Cholesterol Igor 38 mg/dL 5-40 LDL Chol Calc (Nih) 168 mg/dL High 0-99 Comment: TNP Laboratory test finding 02/24/2020 [facility] [id number] SEE IMAGE CBC With Differential/Platelet 12/28/2019 [facility] [...] Laboratory test finding 12/28/2019 [facility] [id number] SEE IMAGE 1 Prediabetes: 5.7 - 6.4 Diabetes: >6.4 Glycemic control for adults with diabetes: <7.0 2 Prediabetes: 5.7 - 6.4 Diabetes: >6.4 Glycemic control for adults with diabetes: <7.0 Procedures Date Code Description Status 05/13/2019 [id number] Mammogram Completed 04/13/2018 [id number] Mammogram Completed 08/19/2017 [id number] Diabetic Retinal Eye Exam Comple [facility] 04/11/2017 [id number] Mammogram Completed 02/15/2015 [id number] Bone Mineral Density Test Comple [facility]rew 02/15/2015 [id number] Mammogram Completed 12/31/2013 [id number] Mammogram Completed 04/01/2012 [id number] Mammogram Completed 08/15/2011 [id number] Colonoscopy Completed 12/05/2009 [id number] Bone Mineral Density Test Comple [facility] 12/05/2009 [id number] Mammogram Completed Medical Devices Description No Information Available Encounters Type Date Location Provider Dx Diagnosis Office Visit 04/11/2020 1:15p [facility] 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 Z79.01 roasterman (current) use of a nticoagulants R73.03 Prediabetes K21.9 Gastro-esophageal reflux dis ease without esophagitis K58.0 Irritable bowel syndrome wit h diarrhea E66.09 Other obesity due to excess calories Z68.37 Body mass index (BMI) 37.0-3 7.9, adult Assessments Date Code Description Provider 04/11/2020 I10 Essential (primary) hypertension TYRESE Gonzalez 04/11/2020 E78.5 Hyperlipidemia, unspecified Talisha Tidwell, ANP 04/11/2020 I82.502 Chronic embolism and thrombosis of unspecified deep veins of Aishwarya Tidwell, ANP 04/11/2020 Z79.01 detention (current) use of antic oagulants Aishwarya Tidwell, ANP 04/11/2020 K21.9 Gastro-esophageal reflux disease without esophagitis Aishwarya Tidwell, ANP 04/11/2020 K58.0 Irritable bowel syndrome with di arrhea Aishwarya Tidwell, ANP 04/11/2020 M15.9 Polyosteoarthritis, unspecified Aishwarya Tidwell, ANP 12/09/2019 I10 Essential (primary) hypertension María Damon, [facility] 12/09/2019 E78.5 Hyperlipidemia, unspecified Mei Damon, [facility] 12/09/2019 I82.502 Chronic embolism and thrombosis of unspecified deep veins of María Damon, [facility] 12/09/2019 Z79.01 roasterman (current) use of antic oagulants María Damon, [facility] 12/09/2019 R73.03 Prediabetes María Damon, F DIRECTOR OF SALES SUPPORT 12/09/2019 K21.9 Gastro-esophageal reflux disease without esophagitis María Damon, [facility] 12/09/2019 K58.0 Irritable bowel syndrome with di arrhea María Damon, [facility] 12/09/2019 E66.09 Other obesity due to excess steve pedro luis María Damon, [facility] 12/09/2019 Z68.37 Body mass index (BMI) 37.0-37.9, adult María Damon [facility] Plan of Treatment Future Appointment(s):* 10/10/2020 1:00 pm - TYRESE Gonzalez at [facility] 04/11/2020 - TYRESE Gonzalez* I10 Essential (primary) hypertension * E78.5 Hyperlipidemia, unspecified * I82.502 Chronic embolism and thrombosis of unspecified deep veins of * Z79.01 roasterman (current) use of anticoagulants * K21.9 Gastro-esophageal reflux disease without esophagitis * K58.0 Irritable bowel syndrome with diarrhea * M15.9 Polyosteoarthritis, unspecified * All * New Medication:* Carisoprodol 350 mg - take one tablet by mouth two times a day as needed dx: m54.5 * Comments:* She'll get a mammo and a DEXA. Functional Status Description No Information Available Mental Status Description No Information Available Referrals Refer to Reason for Referral Status Appt Date [facility] Healthy Lifestyles DIRECTOR OF SALES SUPPORT CONSULT FOR MEDICAL NUTRI TION THERAPY DX: OBESITY, HYPERCHOLESTEROLEMIA Sent [address] [place] [address] [phone] Rosaline Mercado MD CONSULT FOR IRRITABLE BOWEL SYNDROME Closed 01/12/[address] [place] [address] [place] [address] [phone]
--- OUTSIDE RECORDS SUMMARY | 2020-07-25 15:14 | CCD ---
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 Name Role Phone Ghazal Walls Unavailable PROBLEMS Type Condition ICD9-CM Code [id number] Code Onset Dates Condition S tatus SNOMED Code Notes Problem Dysplastic nevi D23.9 Active 008027420 scatte red, small, dark brown irreg shaped nevi, on back, legs, and few on arms, no apparent change noted Problem Seborrheic keratoses L82.1 Active 976601614 m any thick SKs on face, scalp, back, abd, none symptomatic ALLERGIES Allergen (clinical drug ingredient) Drug/Non Drug Allergy do cumented on EMR Reaction Allergy Type Onset Date Status codeine Codeine Sulfate([facility] Code:[address]-33) Hives Drug Al lergy Active ENCOUNTERS from 1940 to 2020-05-17 Encounter Location Date Provider Diagnosis [address] [address] May, Ghazal Walls Obesity due to excess calories E66.09 an d Hyperlipemia E78.5 IMMUNIZATIONS No Information SOCIAL HISTORY Tobacco Use: Social History Observation Description Date Details (start date - stop date) Never Smoker Sex Assigned At : Social History Observation Description Sex Assigned At Unknown Tobacco Use: Question Answer Notes Are you a: never smoker never smoker REASON FOR REFERRAL No Information VITAL SIGNS Weight 201.2 lbs May, Height 5'1.5 in May, BMI 39.29 kg/m2 May, MEDICATIONS Medication SIG (Take, Route, Frequency, Duration) Notes Start Da te End Date Status Tylenol 500 mg 2 tablet as needed Orally Twice a day Active Welchol 625 MG 3 tablets with meals Orally Twice a day for 30 d ay(s) Mar, Active Ketoconazole 2 % 1 application to affected ar ea Externally under breasts and in skin folds twice a day for 15 day(s) Dec, Active Aspir-81 81 MG 1 tablet Orally Once a day Active Xarelto 20 mg 1 tablet with food Orally Once a day for 30 day(s) Not-Taking Protonix 40 mg 1 tablet Orally Once a day for 30 day(s) Active Nystatin 971215 UNIT/GM 1 application Externally Twi ce a day to groin area as needed for 14 days Mar, Active Soma 350 MG 1 tablet as needed Orally Four times a day as needed Active Vitamin B-12 100 MCG 1 tablet Orally Once a day Active Vitamin D 2000 UNIT 1 tablet Orally Once a day Active Avalide 150-12.5 MG 1 tablet Orally Once a day for 30 day(s) Active PROCEDURES No Information RESULTS No Results REASON FOR VISIT Initial Medical Nutritional Therapy r/t E66.09 Obesity E78.5O Hyperlipideia MEDICAL (GENERAL) HISTORY Type Description Date Medical History DEPRESSION Medical History HTN Medical History HIGH CHOLESTEROL Medical History ARTHRITIS Medical History BACK PAIN Medical History HEARING IMPAIRMENT Medical History TINNITUS Medical History fibromyalgia Surgical History HYSTER Surgical History parathyroid removed- Dr. Nicholas 04/2015 Hospitalization History r/t to surgery 04/2015 Goals Section No Information Health Concerns No Information MEDICAL EQUIPMENT No Information MENTAL STATUS No Information FUNCTIONAL STATUS No Information ASSESSMENTS Encounter Date Diagnosis Assessment Notes Treatment Notes Treatm ent Clinical Notes May, Obesity due to excess calories (ICD-10 - E66.09) May, Hyperlipemia (ICD-10 - E78.5) May, Other Food Allergies: NKFA Food Dislikes: none noted REE= 1336 calories/day for weight loss 24 hour food recall: Breakfast: oatmeal, brown sugar, coffee w/ 1% milk, sm banana Lunch: homemade beef vegetable soup, 5 crackers, 1/2 avacado, tea Dinner: frozen chicken quesadilla, frozen cheese enchilada, avacado, guac Snacks: none recorded 03/24/2020 A1c -5.6% Glucose Fasting-89 TG-205^ Cholesterol-234^ LDL- 149^ HDL-50 Pertinent Medications: welchol, xarelto, protonix 40 daily, toprol XL, [id number], Vit D3 2000 IU daily, Ocuvite Previous Med Hx: new-Fatty Liver GERD w/out esophagitis, IBS w/ diarrhea, osteoarthritis, HTN, spinal stenosis in 3 locations per patient-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 Nutrition Prescription: 1) Diet Education: Portion Plate Method 3 carb serving at breakfast-2 with lunch and dinner 2) Goal Setting-Patient will lose 5-7% of weight from 201 to187- 191 by 11/08/19 20. 3) Evidence of Learning: Verbalizes Understanding 4) Expected Adherence: Unable to Determine 5) Barriers to Adherence: Unwilling to Change Other-limited actvity Referring provider: Aishwarya Tidwell NP COMMENTS: Patient present for MNT r/t recently diagnosed Fatty Liver and elevated lipids. Patient s taking this news seriously, but does not feel up to cooking in the evening due to pain with standing. Patient noted she sat at kitchen table to prepare food. We discussed batch cooking early in the day when her pain is not so much, and using her vacuum sealer to freeze her food. Then she will have healthy frozen food in her freezer that she can provisioning specialist the microwave. No problems taking meds or getting refills in a timely manner. Educated patient to use portion plate method and count carbohydrates. Patient appeared to understand and asked appropriate questions. Next discussed sowly working toward activity goals of 30 minutes 5 days a week and resistance type of exercise 3 times a week. Chair exercise may be an appropriate type of exercise and possibly exercise bands. Possibly refer to PT for guidance of safe exercise. Patient seemed to understand and has RDs contact information. GOALS: I will lose5- 7% of my weight from 201 to 187-191 pounds by 11/07/2020 1) I will follow meal plan given and keep fod diary daily. 2) I will ask Damaris, my PT what exercise is safe for me and increase activity with her guidance. Monitor: _x_ Diet _x _WT _x__ Meds _x_ Food Log _x_Activity PLAN OF TREATMENT Next Appt Details Patient will call to r/s after the holid ays Reason: Provider Name:Emelyn Courtney, 2020-08-01 02:15:00 PM, [address] [place], [address], Insurance Providers Payer Name Payer Address Payer Phone Insured Name Patient Relati onship to Insured Coverage Start Date Coverage End Date [facility] [employer] [id number] [address] [facility] [place]
--- OUTSIDE RECORDS SUMMARY | 2020-07-25 15:16 | CCD ---
Author Author [facility] Organization [facility] Address Unknown Phone Unavailable Care Team Providers Care Jewelry Racker Name Role Phone GET, J Aishwarya ANP Unavailable Unavailable GET, J Aishwarya ANP Unavailable Unavailable GET, J Aishwarya ANP Unavailable Unavailable GET, J Aishwarya ANP Unavailable Unavailable GET, J Aishwarya ANP Unavailable Unavailable GET, J Aishwarya ANP Unavailable Unavailable GET, J Aishwarya ANP Unavailable Unavailable GET, J Aishwarya ANP Unavailable Unavailable GET, J Aishwarya ANP Unavailable Unavailable GET, J Aishwarya ANP Unavailable Unavailable GET, J Aishwarya ANP Unavailable Unavailable GET, J Aishwarya ANP Unavailable Unavailable GET, J Aishwarya ANP Unavailable Unavailable GET, J Aishwarya ANP Unavailable Unavailable GET, J Aishwarya ANP Unavailable Unavailable GET, J Aishwarya ANP Unavailable Unavailable GET, J Aishwarya ANP Unavailable Unavailable GET, J Aishwarya ANP Unavailable Unavailable GET, J Aishwarya ANP Unavailable Unavailable GET, J Aishwarya ANP Unavailable Unavailable GET, J Aishwarya ANP Unavailable Unavailable GET, J Aishwarya ANP Unavailable Unavailable GET, J Aishwarya ANP Unavailable Unavailable GET, J Aishwarya ANP Unavailable Unavailable GET, J Aishwarya ANP Unavailable Unavailable GET, J Aishwarya ANP Unavailable Unavailable GET, J Aishwarya ANP Unavailable Unavailable GET, J Aishwarya ANP Unavailable Unavailable GET, J Aishwarya ANP Unavailable Unavailable GET, J Aishwarya ANP Unavailable Unavailable GET, J Aishwarya ANP Unavailable Unavailable GET, J Aishwarya ANP Unavailable Unavailable GET, J Aishwarya ANP Unavailable Unavailable GET, J Aishwarya ANP Unavailable Unavailable GET, J Aishwarya ANP Unavailable Unavailable GET, J Aishwarya ANP Unavailable Unavailable GET, J Aishwarya ANP Unavailable Unavailable GET, J Aishwarya ANP Unavailable Unavailable GET, J Aishwarya ANP Unavailable Unavailable GET, J Aishwarya ANP Unavailable Unavailable GET, J Aishwarya ANP Unavailable Unavailable GET, J Aishwarya ANP Unavailable Unavailable GET, J Aishwarya ANP Unavailable Unavailable GET, J Aishwarya ANP Unavailable Unavailable GET, J Aishwarya ANP Unavailable Unavailable GET, J Aishwarya ANP Unavailable Unavailable GET, J Aishwarya ANP Unavailable Unavailable GET, J Aishwarya ANP Unavailable Unavailable GET, J Aishwarya ANP Unavailable Unavailable GET, J Aishwarya ANP Unavailable Unavailable GET, J Aishwarya ANP Unavailable Unavailable GET, J Aishwarya ANP Unavailable Unavailable GET, J Aishwarya ANP Unavailable Unavailable GET, J Aishwarya ANP Unavailable Unavailable GET, J Aishwarya ANP Unavailable Unavailable GET, J Aishwarya ANP Unavailable Unavailable GET, J Aishwarya ANP Unavailable Unavailable GET, J Aishwarya ANP Unavailable Unavailable GET, J Aishwarya ANP Unavailable Unavailable GET, J Aishwarya ANP Unavailable Unavailable GET, J Aishwarya ANP Unavailable Unavailable GET, J Aishwarya ANP Unavailable Unavailable GET, J Aishwarya ANP Unavailable Unavailable GET, J Aishwarya ANP Unavailable Unavailable GET, J Aishwarya ANP Unavailable Unavailable GET, J Aishwarya ANP Unavailable Unavailable Nelson, María TEAM FACILITATOR Unavailable Unavailable Nelson, María TEAM FACILITATOR Unavailable Unavailable Nelson, María TEAM FACILITATOR Unavailable Unavailable Nelson, María TEAM FACILITATOR Unavailable Unavailable Nelson, María TEAM FACILITATOR Unavailable Unavailable Nelson, María TEAM FACILITATOR Unavailable Unavailable Nelson, María TEAM FACILITATOR Unavailable Unavailable Nelson, María TEAM FACILITATOR Unavailable Unavailable Nelson, María TEAM FACILITATOR Unavailable Unavailable Nelson, María TEAM FACILITATOR Unavailable Unavailable Nelson, María TEAM FACILITATOR Unavailable Unavailable Nelson, María TEAM FACILITATOR Unavailable Unavailable Nelson, María TEAM FACILITATOR Unavailable Unavailable Nelson, María TEAM FACILITATOR Unavailable Unavailable Nelson, María TEAM FACILITATOR Unavailable Unavailable Nelson, María TEAM FACILITATOR Unavailable Unavailable Nelson, María TEAM FACILITATOR Unavailable Unavailable Nelson, María TEAM FACILITATOR Unavailable Unavailable Nelson, María TEAM FACILITATOR Unavailable Unavailable Nelson, María TEAM FACILITATOR Unavailable Unavailable Nelson, María TEAM FACILITATOR Unavailable Unavailable Nelson, María TEAM FACILITATOR Unavailable Unavailable Nelson, María TEAM FACILITATOR Unavailable Unavailable Nelson, María TEAM FACILITATOR Unavailable Unavailable Nelson, María TEAM FACILITATOR Unavailable Unavailable Nelson, María TEAM FACILITATOR Unavailable Unavailable Nelson, María TEAM FACILITATOR Unavailable Unavailable JANNETH (PREMA), Heath GONZALEZ MD Unavailable Unavailab le JANNETH (PREMA), Heath GONZALEZ MD Unavailable Unavailab le JANNETH (PREMA), Heath GONZALEZ MD Unavailable Unavailab le JANNETH (PREMA), Heath GONZALEZ MD Unavailable Unavailab le JANNETH (PREMA), Heath GONZALEZ MD Unavailable Unavailab le JANNETH (PREMA), Heath GONZALEZ MD Unavailable Unavailab le JANNETH (PREMA), Heath GONZALEZ MD Unavailable Unavailab le JANNETH (PREMA), Heath GONZALEZ MD Unavailable Unavailab le JANNETH (PREMA), Heath GONZALEZ MD Unavailable Unavailab le JANNETH (PREMA), Heath GONZALEZ MD Unavailable Unavailab le JANNETH (PREMA), Heath GONZALEZ MD Unavailable Unavailab le JANNETH (PREMA), Heath GONZALEZ MD Unavailable Unavailab le JANNETH (PREMA), Heath GONZALEZ MD Unavailable Unavailab le JANNETH (PREMA), Heath GONZALEZ MD Unavailable Unavailab le JANNETH (PREMA), Heath GONZALEZ MD Unavailable Unavailab le JANNETH (PREMA), Heath GONZALEZ MD Unavailable Unavailab le JANNETH (PREMA), Heath GONZALEZ MD Unavailable Unavailab le JANNETH (PREMA), Heath GONZALEZ MD Unavailable Unavailab le JANNETH (PREMA), Heath GONZALEZ MD Unavailable Unavailab le JANNETH (PREMA), Heath GONZALEZ MD Unavailable Unavailab le JANNETH (PREMA), Heath GONZALEZ MD Unavailable Unavailab le JANNETH (PREMA), Heath GONZALEZ MD Unavailable Unavailab le JANNETH (PREMA), Heath GONZALEZ MD Unavailable Unavailab le JANNETH (PREMA), Heath GONZALEZ MD Unavailable Unavailab le JANNETH (PREMA), Heath GONZALEZ MD Unavailable Unavailab le JANNETH (PREMA), Heath GONZALEZ MD Unavailable Unavailab le JANNETH (PREMA), Heath GONZALEZ MD Unavailable Unavailab le JANNETH (PREMA), Heath GONZALEZ MD Unavailable Unavailab le JANNETH (PREMA), Heath GONZALEZ MD Unavailable Unavailab le JANNETH (PREMA), Heath GONZALEZ MD Unavailable Unavailab le JANNETH (PREMA), Heath GONZALEZ MD Unavailable Unavailab le JANNETH (PREMA), Heath GONZALEZ MD Unavailable Unavailab le JANNETH (PREMA), Heath GONZALEZ MD Unavailable Unavailab le JANNETH (PREMA), Heath GONZALEZ MD Unavailable Unavailab le JANNETH (PREMA), Heath GONZALEZ MD Unavailable Unavailab le JANNETH (PREMA), Heath GONZALEZ MD Unavailable Unavailab le JANNETH (PREMA), Heath GONZALEZ MD Unavailable Unavailab le JANNETH (PREMA), Heath GONZALEZ MD Unavailable Unavailab le JANNETH (PREMA), Heath GONZALEZ MD Unavailable Unavailab le JANNETH (PREMA), Heath GONZALEZ MD Unavailable Unavailab le JANNETH (PREMA), Heath GONZALEZ MD Unavailable Unavailab le JANNETH (PREMA), Heath GONZALEZ MD Unavailable Unavailab le JANNETH (PREMA), Heath GONZALEZ MD Unavailable Unavailab le JANNETH (PREMA), Heath GONZALEZ MD Unavailable Unavailab le JANNETH (PREMA), Heath GONZALEZ MD Unavailable Unavailab le JANNETH (PREMA), Heath GONZALEZ MD Unavailable Unavailab le JANNETH (PREMA), Heath GONZALEZ MD Unavailable Unavailab le JANNETH (PREMA), Heath GONZALEZ MD Unavailable Unavailab le JANNETH (PREMA), Heath GONZALEZ MD Unavailable Unavailab le JANNETH (PREMA), Heath GONZALEZ MD Unavailable Unavailab le JANNETH (PREMA), Heath GONZALEZ MD Unavailable Unavailab le JANNETH (PREMA), Heath GONZALEZ MD Unavailable Unavailab le JANNETH (PREMA), Heath GONZALEZ MD Unavailable Unavailab le JANNETH (PREMA), Heath GONZALEZ MD Unavailable Unavailab le JANNETH (PREMA), Heath GONZALEZ MD Unavailable Unavailab le JANNETH (PREMA), Heath GONZALEZ MD Unavailable Unavailab le JANNETH (PREMA), Heath GONZALEZ MD Unavailable Unavailab le JANNETH (PREMA), Heath GONZALEZ MD Unavailable Unavailab le JANNETH (PREMA), Heath GONZALEZ MD Unavailable Unavailab le JANNETH (PREMA), Heath GONZALEZ MD Unavailable Unavailab le JANNETH (PREMA), Heath GONZALEZ MD Unavailable Unavailab le JANNETH (PREMA), Heath GONZALEZ MD Unavailable Unavailab le JANNETH (PRMEA), Heath GONZALEZ MD Unavailable Unavailab le JANNETH (PREMA), Heath GONZALEZ MD Unavailable Unavailab le JANNETH (PREMA), Heath GONZALEZ MD Unavailable Unavailab le JANNETH (PREMA), Heath GONZALEZ MD Unavailable Unavailab le JANNETH (PREMA), Heath GONZALEZ MD Unavailable Unavailab le JANNETH (PREMA), Heath GONZALEZ MD Unavailable Unavailab le JANNETH (PREMA), Heath GONZALEZ MD Unavailable Unavailab le JANNETH (PREMA), Heath GONZALEZ MD Unavailable Unavailab le JANNETH (PREMA), Heath GONZALEZ MD Unavailable Unavailab le JANNETH (PREMA), Heath GONZALEZ MD Unavailable Unavailab le JANNETH (PREMA), Heath GONZALEZ MD Unavailable Unavailab le JANNETH (PREMA), Heath GONZALEZ MD Unavailable Unavailab le JANNETH (PREMA), Heath GONZALEZ MD Unavailable Unavailab le JANNETH (PREMA), Heath GONZALEZ MD Unavailable Unavailab le JANNETH (PREMA), Heath GONZALEZ MD Unavailable Unavailab le JANNETH (PREMA), Heath GONZALEZ MD Unavailable Unavailab le JANNETH (PREMA), Heath GONZALEZ MD Unavailable Unavailab le JANNETH (PREMA), Heath GONZALEZ MD Unavailable Unavailab le JANNETH (PREMA), Heath GONZALEZ MD Unavailable Unavailab le JANNETH (PREMA), Heath GONZALEZ MD Unavailable Unavailab le JANNETH (PREMA), Heath GONZALEZ MD Unavailable Unavailab le JANNETH (PREMA), Heath GONZALEZ MD Unavailable Unavailab le JANNETH (PREMA), Heath GONZALEZ MD Unavailable Unavailab le JANNETH (PREMA), Heath GONZALEZ MD Unavailable Unavailab le JANNETH (PREMA), Heath GONZALEZ MD Unavailable Unavailab le JANNETH (PREMA), Heath GONZALEZ MD Unavailable Unavailab le JANNETH (PREMA), Heath GONZALEZ MD Unavailable Unavailab le JANNETH (PREMA), Heath GONZALEZ MD Unavailable Unavailab le JANNETH (PREMA), Heath GONZALEZ MD Unavailable Unavailab le JANNETH (PREMA), Heath GONZALEZ MD Unavailable Unavailab le JANNETH (PREMA), Heath GONZALEZ MD Unavailable Unavailab le Matt WALTERS DO Unavailable [phone] Matt WALTERS DO Unavailable [phone] Matt WALTERS DO Unavailable [phone] Matt WALTERS DO Unavailable [phone] Matt WALTERS DO Unavailable [phone] Matt WALTERS DO Unavailable [phone] Matt WALTERS DO Unavailable [phone] Matt WALTERS MARIA L DO Unavailable [phone] MARTHA, A. MARIA L DO Unavailable [phone] MARTAH, A. MARIA L DO Unavailable [phone] MARTHA, ScotRaj MARIA L DO Unavailable [phone] MARTHA, A. MARIA L DO Unavailable [phone] MARTHA, A. MARIA L DO Unavailable [phone] MARTHA, A. MARIA L DO Unavailable [phone] MARTHA, A. MARIA L DO Unavailable [phone] Matt WALTERS MARIA L DO Unavailable [phone] Matt WALTERS MARIA L DO Unavailable [phone] Matt WALTERS MARIA L DO Unavailable [phone] Matt WALTERS MARIA L DO Unavailable [phone] Matt WALTERS MARIA L DO Unavailable [phone] Matt WALTERS MARIA L DO Unavailable [phone] GET, J Aishwarya ANP Unavailable Unavailable GET, J Aishwarya ANP Unavailable Unavailable GET, J Aishwarya ANP Unavailable Unavailable GET, J Aishwarya ANP Unavailable Unavailable GET, J Aishwarya ANP Unavailable Unavailable GET, J Aishwarya ANP Unavailable Unavailable GET, J Aishwarya ANP Unavailable Unavailable GET, J Aishwarya ANP Unavailable Unavailable GET, J Aishwarya ANP Unavailable Unavailable GET, J Aishwarya ANP Unavailable Unavailable GET, J Aishwarya ANP Unavailable Unavailable GET, J Aishwarya ANP Unavailable Unavailable GET, J Aishwarya ANP Unavailable Unavailable GET, J Aishwarya ANP Unavailable Unavailable GET, J Aishwarya ANP Unavailable Unavailable GET, J Aishwarya ANP Unavailable Unavailable GET, J Aishwarya ANP Unavailable Unavailable GET, J Aishwarya ANP Unavailable Unavailable GET, J Aishwarya ANP Unavailable Unavailable GET, J Aishwarya ANP Unavailable Unavailable GET, J Aishwarya ANP Unavailable Unavailable GET, J Aishwarya ANP Unavailable Unavailable GET, J Aishwarya ANP Unavailable Unavailable GET, J Aishwarya ANP Unavailable Unavailable GET, J Aishwarya ANP Unavailable Unavailable GET, J Aishwarya ANP Unavailable Unavailable GET, J Aishwarya ANP Unavailable Unavailable GET, J Aishwarya ANP Unavailable Unavailable GET, J Aishwarya ANP Unavailable Unavailable GET, J Aishwarya ANP Unavailable Unavailable GET, J Aishwarya ANP Unavailable Unavailable GET, J Aishwarya ANP Unavailable Unavailable GET, J Aishwarya ANP Unavailable Unavailable GET, J Aishwarya ANP Unavailable Unavailable GET, J Aishwarya ANP Unavailable Unavailable GET, J Aishwarya ANP Unavailable Unavailable GET, J Aishwarya ANP Unavailable Unavailable GET, J Aishwarya ANP Unavailable Unavailable GET, J Aishwarya ANP Unavailable Unavailable GET, J Aishwarya ANP Unavailable Unavailable GET, J Aishwarya ANP Unavailable Unavailable GET, J Aishwarya ANP Unavailable Unavailable GET, J Aishwarya ANP Unavailable Unavailable GET, J Aishwarya ANP Unavailable Unavailable GET, J Aishwarya ANP Unavailable Unavailable GET, J Aishwarya ANP Unavailable Unavailable GET, J Aishwarya ANP Unavailable Unavailable GET, J Aishwarya ANP Unavailable Unavailable GET, J Aishwarya ANP Unavailable Unavailable GET, J Aishwarya ANP Unavailable Unavailable GET, J Aishwarya ANP Unavailable Unavailable GET, J Aishwarya ANP Unavailable Unavailable GET, J Aishwarya ANP Unavailable Unavailable GET, J Aishwarya ANP Unavailable Unavailable GET, J Aishwarya ANP Unavailable Unavailable GET, J Aishwarya ANP Unavailable Unavailable GET, J Aishwarya ANP Unavailable Unavailable GET, J Aishwarya ANP Unavailable Unavailable GET, J Aishwarya ANP Unavailable Unavailable GET, J Aishwarya ANP Unavailable Unavailable GET, J Aishwarya ANP Unavailable Unavailable GET, J Aishwarya ANP Unavailable Unavailable GET, J Aishwarya ANP Unavailable Unavailable GET, J Aishwarya ANP Unavailable Unavailable GET, J Aishwarya ANP Unavailable Unavailable GET, J Aishwarya ANP Unavailable Unavailable Re-disclosure Warning The records that you are about to access may contain information from federally-assisted alcohol or drug abuse programs. If such information is present, then the following federally mandated warning applies: This information has been disclosed to you from records protected by federal confidentiality rules (42 CFR part 2). The federal rules prohibit you from making any further disclosure of this information unless further disclosure is expressly permitted by the written consent of the person to whom it pertains or as otherwise permitted by 42 CFR part 2. A general authorization for the release of medical or other information is NOT sufficient for this purpose. The Federal rules restrict any use of the information to criminally investigate or prosecute any alcohol or drug abuse patient.The records that you are about to access may contain highly sensitive health information, the redisclosure of which is protected by Article 27-F of the [facility] Public Health law. If you continue you may have access to information: Regarding HIV / AIDS; Provided by facilities licensed or operated by the [facility] Office of Mental Health; or Provided by the [facility] Office for People With Developmental Disabilities. If such information is present, then the following [facility] mandated warning applies: This information has been disclosed to you from confidential records which are protected by state law. State law prohibits you from making any further disclosure of this information without the specific written consent of the person to whom it pertains, or as otherwise permitted by law. Any unauthorized further disclosure in violation of state law may result in a fine or intermediate sentence or both. A general authorization for the release of medical or other information is NOT sufficient authorization for further disc losure. Family History Family Member Name Family Member Gender Family Member Status Date o f Status Description Data Source(s) Unknown Male Problem [facility] ([facility] Unknown Unknown Problem [facility] ([facility] Encounters Encounter Providers Location Date Indications Data Source(s ) Attender: CARLOS FLORES) MDReferrer: Iraida XIONG 05/30/2020 08:20:12 PM EST [facility] [address] [address] 05/15/2020 12:00:00 AM EST eCW1 ([facility]) Outpatient Attender: Aishwarya Martin 10:30:00 AM EST MEDENT ([facility] ) Attender: CARLOS LAGUNAS ([place]) MDReferrer: Iraida XIONG 04/24/2020 08:20:11 PM EST [facility] Attender: CARLOS FLORES) MDReferrer: Iraida XIONG 04/24/2020 08:20:11 PM EST [facility] Referrer: Aishwarya XIONG 04/18/2020 08:20:11 PM EST [facility] Referrer: Aishwarya XIONG 04/18/2020 08:20:11 PM EST [facility] Referrer: Aishwarya XIONG 04/18/2020 08:20:11 PM EST [facility] Referrer: Aishwarya XIONG 04/18/2020 08:20:11 PM EST [facility] Outpatient Attender: Aishwarya Martin 08/2019 12:15:00 PM EST MEDENT ([facility] ) Outpatient [address] [facility] [id number] 04/03/2020 12:00:00 AM EDT eCW1 ([facility]) Unknown [address] [facility] [address] 03/16/2020 12:00:00 AM EDT eCW1 ([facility]) Outpatient Attender: María Martin 01:40:00 PM EDT MEDENT ([facility] ) Outpatient<td ID="encounterTypeDescripti onID0">Yag Laser Capsulotomy - Global: 90 DAY POST OP</td><td>Maria L Walters DO</td><td>Landon Meadows MD [facility]</td><td>11/17/2019</td><td>03/18/2019 12:45PM</td><td>1:58PM</td><td><content ID="encounterDiagnosisID0-0">Posterior Capsule Opacification Left Eye</content>, <content ID="encounterDiagnosisID0-1">Pseudophakia</content>, <content ID="encounterDiagnosisID0-2">Drusen Right Eye</content></td> Attender: MARIA L Stanton MD [facility] 03/18/2019 12:45:00 PM EDT - 11/17/2019 01:58:00 PM EDT Posterior Capsule Opacification Left Eye PseudophakiaDrusen Right Eye TERRENCE (Landon Pelletier MD [facility]) Posterior Capsule Opacification Left Eye Pseudophakia Drusen Right Eye Immunizations Vaccine Date Status Description Data Source(s) This CVX code allows reporting of a vacc ination when formulation is unknown (for example, when recording a Influenza vaccination when noted on a vaccination card) 02/12/2020 01:45:00 PM EDT completed MEDEN T ([facility]) Medications Medication Brand Name Start Date Product Form Dose Route Admi nistrative Instructions Pharmacy Instructions Status Indications Reaction Description Data Source(s) Heplisav-B Heplisav-B 05/08/2020 12:00:00 AM EST a ctive MEDENT ([facility]) pitavastatin 2 MG Oral Tablet [Livalo] Livalo 05/02/2020 12:00:00 AM EST ORAL active MEDENT ([facility]) Carisoprodol 350 MG Oral Tablet Carisoprodol 04/11/2020 12:00:[address] ORAL active MEDENT ([facility]) Colesevelam hydrochloride 625 MG Oral Tablet [Welchol] Welchol 625 MG Welchol 625 MG 04/03/2020 12:00:00 AM EDT 3.0 {tablets_with_meals} active Welchol 625 MG eCW1 ([facility]) Colesevelam hydrochloride 625 MG Oral Tablet [Welchol] Welchol 625 MG Welchol 625 MG 04/03/2020 12:00:00 AM EDT 3.0 {tablets_with_meals} active Welchol 625 MG eCW1 ([facility]) Nystatin 848046 UNT/ML Topical Cream Nystatin 355107 U NIT/GM Nystatin 897955 UNIT/GM 03/16/2020 12:00:00 AM EDT 1.0 {application} active Nystatin 705924 UNIT/GM eCW1 ([facility]) Nystatin 871212 UNT/ML Topical Cream Nystatin 367662 U NIT/GM Nystatin 514945 UNIT/GM 03/16/2020 12:00:00 AM EDT 1.0 {application} active Nystatin 627861 UNIT/GM eCW1 ([facility]) Nystatin 928993 UNT/ML Topical Cream Nystatin 948585 U NIT/GM Nystatin 016129 UNIT/GM 03/16/2020 12:00:00 AM EDT 1.0 {application} active Nystatin 373797 UNIT/GM eCW1 ([facility]) atorvastatin 40 MG Oral Tablet Atorvastatin Calcium 02/26/2020 1 2:00:00 AM EDT ORAL completed MEDENT ([facility]) Insurance Providers Payer name Policy type / Coverage type Policy ID Covered republican ID Covered republican's relationship to treviño Policy Treviño Plan Information [facility] HEALTH BENEFIT PLAN [id number] 2 [id number] [facility] Health Benefit Plan [id number] [facility] HEALTH BENEFIT PLAN O [id number] S [id number] [employer] ([facility]) Other 0 Family Dependent Dallas Wennerstrom 0 [employer] ([facility]) Other 0 Family Dependent Dallas Wennerstrom 0 [employer] ([facility]) Other 0 Family Dependent Dallas Wennerstrom 0 Medicare Natl Govt Servic Medicare Primary [id number] Self [id number] Cigna/Nalc/MVP Medigap Part B [id number] Family Dependent [id number] [facility]/ Medigap Part B [id number] Family Dependent [id number] [facility] Health Benefit Commercial [id number] Family Dependent [id number] [employer] [place] [id number] 2 [id number] Medicare Natl Govt Servic Medicare Primary [id number] Self [id number] [facility] Commercial [id number] Dependent [id number] Medicare Natl Govt Servic Medicare Primary [id number] Self [id number] Medicare Natl Govt Servic Medicare Primary [id number] Self [id number] Cigna/Nalc/MVP Medigap Part B [id number] Family Dependent [id number] [facility] HEALTH BENEFIT PLAN [id number] [facility] [id number] Medicare Natl Govt Servic Medicare Primary [id number] Self [id number] Medicare Natl Govt Servic Medicare Primary [id number] Self [id number] Medicare Natl Govt Servic Medicare Primary [id number] Self [id number] Medicare Natl Govt Servic Medicare Primary [id number] Self [id number] [facility] HEALTH BENEFIT PLAN [id number] MEDICARE [id number] SP [id number] a Medicare Natl Govt Servic Medicare Primary [id number] Self [id number] MEDICARE [id number] SP [id number] MEDICARE C [id number] S [id number] A Medicare Natl Govt Serv[employer] Medicare Primary [id number] Self [id number] Medicare Natl Govt Serv[employer] Medicare Primary [id number] Self [id number] Medicare Natl Govt Serv[employer] Medicare Primary [id number] Self [id number] Federal BC/BS Medigap Part B [id number] Family Dependent [id number] Cigna/Nalc/MVP Medigap Part B [id number] Family Dependent [id number] Medicare Natl Govt Servic Medicare Primary Self COMMERCIAL GENERIC [id number] Spo N [id number] CIGNA [id number] Kemi [id number] MEDICARE [id number] Kemi [id number] A COMMERCIAL GENERIC [id number] Spo N [id number] CIGNA HEALTHCARE O [id number] P N [id number] CIGNA HEALTHCARE O [id number] S [id number] [facility] HEALTH BENEFIT PLAN [id number] NATL ASSOC LETTER CARRIERS U [id number] Spouse [id number] [facility] HEALTH BENEFIT PLAN P [id number] S [id number] [facility] HEALTH BENEFIT PLAN P [id number] S [id number] Surgeries/Procedures Procedure Description Date Indications Data Source(s) Extracapsular extraction of lens (procedure) History o f extracapsular cataract extraction PCIOL OS by Dr. Walters 10/22/16 MFIOL ~PCIOL OD by Dr. Walters 09/15/17 MFIOL with Femtosecond laser 10/28/2019 12:00:00 AM ROSHAN OCAMPO (Landon Pelletier MD [facility]) Results ID Date Data Source [id number] 05/12/2020 02:06:00 PM EST [facility] Name Value Range Interpretation Code Description Data Eloisa rce(s) Supporting Document(s) Occult Blood, Fecal, IA Negative Negative [facility] ID Date Data Source [id number] 05/12/2020 02:06:00 PM EST [facility] Name Value Range Interpretation Code Description Data Eloisa rce(s) Supporting Document(s) Occult Blood, Fecal, IA Negative Negative [facility] ID Date Data Source [id number] 04/27/2020 08:05:00 AM EST [facility] Name Value Range Interpretation Code Description Data Eloisa rce(s) Supporting Document(s) Albumin 4.1 g/dL 3.7-4.7 [facility] Bilirubin, Total 0.4 mg/dL 0.0-1.2 [facility] Bilirubin, Direct 0.10 mg/dL 0.00-0.40 [facility] Alkaline Phosphatase 76 IU/L 39-117 [facility] AST (SGOT) 19 IU/L 0-40 [facility] ALT (SGPT) 23 IU/L 0-32 [facility] ID Date Data Source [id number] 04/27/2020 02:06:00 PM EST [facility] Name Value Range Interpretation Code Description Data Eloisa e(s) Supporting Document(s) t-Transglutaminase (tTG) IgA 0-3 [facility] Negative 0 - 3 Weak Positive 4 - 10 Positive >10 Tissue Transglutaminase (tTG) has been identified as the endomysial antigen. Studies have demonstr- ated that endomysial IgA antibodies have over 99% specificity for gluten sensitive enteropathy. ID Date Data Source [id number] 04/28/2020 12:05:00 AM EST [facility] Name Value Range Interpretation Code Description Data [facility] Supporting Document(s) Protein, Total 6.4 g/dL 6.0-8.5 [facility] Albumin 3.6 g/dL 2.9-4.4 [facility] Xnpwj-5-Tsjublpt 0.2 g/dL 0.0-0.4 [facility] Tyeps-7-Ovzurvig 0.9 g/dL 0.4-1.0 [facility] Beta Globulin 1.0 g/dL 0.7-1.3 [facility] Gamma Globulin 0.7 g/dL 0.4-1.8 [facility] M-Karel Not Observed g/dL Not Observed [facility] Globulin, Total 2.8 g/dL 2.2-3.9 [facility] A/G Ratio 1.3 0.7-1.7 [facility] Please note: [facility] Protein electrophoresis scan will follow via computer, mail, orcourier delivery. PDF . [facility] ID Date Data Source [id number] 04/27/2020 08:05:00 AM EST [facility] Name Value Range Interpretation Code Description Data Eloisa rce(s) Supporting Document(s) Iron Bind.Cap.(TIBC) 264 ug/dL 250-450 [facility] UIBC 194 ug/dL 118-369 [facility] Iron 70 ug/dL 27-139 [facility] Iron Saturation 27 % 15-55 [facility] ID Date Data Source [id number] 04/28/2020 12:05:00 AM EST [facility] Name Value Range Interpretation Code Description Data Eloisa rce(s) Supporting Document(s) Actin (Smooth Muscle) Antibody 4 Units 0-19 [facility] Negative 0 - 19 Weak positive 20 - 30 Moderate to strong positive >30 Actin Antibodies are found in 52-85% of patients with autoimmune hepatitis or chronic active hepatitis and in 22% of patients with primary biliary cirr hosis. ID Date Data Source [id number] 04/27/2020 08:05:00 AM EST [facility] Name Value Range Interpretation Code Description Data Eloisa rce(s) Supporting Document(s) Bilirubin, Indirect 0.30 mg/dL 0.10-0.80 [facility] ID Date Data Source [id number] 04/28/2020 12:05:00 AM EST [facility] Name Value Range Interpretation Code Description Data Eloisa rce(s) Supporting Document(s) Mitochondrial (M2) Antibody 0.0-20.0 [facility] Negative 0.0 - 20.0 Equivocal 20.1 - 24.9 Positive >24.9 Mitochondrial (M2) Antibodies are found in 90-96% of patients with primary biliary cirrhosis. ID Date Data Source [id number] 04/27/2020 08:05:00 AM EST [facility] Name Value Range Interpretation Code Description Data Eloisa rce(s) Supporting Document(s) INR 1.0 0.9-1.2 [facility] Reference interval is for non-anticoagulated patients. Suggested INR therapeutic range for Vitamin K antagonist therapy: Standard Dose (moderate intensity therapeutic range): 2.0 - 3.0 Higher intensity therapeutic range 2.5 - 3.5 Prothrombin Time 10.9 sec 9.1-12.0 [facility] aPTT 31 sec 24-33 [facility] This test has not been validated for mon itoring unfractionated heparintherapy. aPTT-based therapeutic ranges for unfractionated heparintherapy have not been established. For general guidelines onHeparin monitoring, refer to the [facility] Directory of Services. ID Date Data Source [id number] 04/28/2020 12:05:00 AM EST [facility] Name Value Range Interpretation Code Description Data Eloisa rce(s) Supporting Document(s) Liver-Kidney Microsomal Ab 0.0-20.0 [facility] Negative 0.0 - 20.0 Equivocal 20.1 - 24.9 Positive >24.9 LKM type 1 antibodies are detected in patients with autoimmune hepatitis type 2 and in up to 8% of patients with chronic HCV infection. ID Date Data Source [id number] 04/27/2020 08:05:00 AM EST [facility] Name Value Range Interpretation Code Description Data Eloisa rce(s) Supporting Document(s) Hep A Ab, IgM Negative Negative [facility] Hep A Ab, Total Positive Negative Abnormal (applies to non-numeri c results) [facility] ID Date Data Source [id number] 04/28/2020 12:05:00 AM EST [facility] Name Value Range Interpretation Code Description Data Eloisa rce(s) Supporting Document(s) Antinuclear Antibodies, IFA Negative [facility] Negative <1:80 Borderline 1:80 Positive >1:80 ID Date Data Source [id number] 04/27/2020 08:05:00 AM EST [facility] Name Value Range Interpretation Code Description Data Eloisa rce(s) Supporting Document(s) AFP, Serum, Tumor Marker 1.8 ng/mL 0.0-8.3 [facility] Electrochemiluminescen ce Immunoassay (ECLIA) Values obtained with different assay methods or kits cannot beused interchangeably. Results cannot be interpreted as absoluteevidence of the presence or absence of malignant disease. This test is not interpretable in females. ID Date Data Source [id number] 04/27/2020 08:05:00 AM EST [facility] Name Value Range Interpretation Code Description Data Eloisa rce(s) Supporting Document(s) TSH 4.440 uIU/mL 0.450-4.500 [facility] ID Date Data Source [id number] 04/27/2020 08:05:00 AM EST [facility] Name Value Range Interpretation Code Description Data Eloisa rce(s) Supporting Document(s) Hep B Surface Ab, Qual Non Reactive [facility] Non Reactiv e: Inconsistent with immunity, less than 10 mIU/mL Reactive: Consistent with immunity, greater than 9.9 mIU/mL ID Date Data Source [id number] 04/27/2020 08:05:00 AM EST [facility] Name Value Range Interpretation Code Description Data Eloisa rce(s) Supporting Document(s) Hep C Virus Ab 0.6 s/co ratio 0.0-0.9 [facility] Negative: < 0.8 Indeterminate: 0.8 - 0.9 Positive: > 0.9 The CDC recommends that a positive HCV antibody result be followed up with a HCV Nucleic Acid Amplification test (763811). ID Date Data Source [id number] 04/27/2020 08:05:00 AM EST [facility] Name Value Range Interpretation Code Description Data Eloisa rce(s) Supporting Document(s) Ceruloplasmin 27.4 mg/dL 19.0-39.0 [facility] ID Date Data Source [id number] 04/27/2020 08:05:00 AM EST [facility] Name Value Range Interpretation Code Description Data Eloisa rce(s) Supporting Document(s) Ohtpi-7-Xzdizqrimen, Serum 139 mg/dL 101-187 [facility] ID Date Data Source [id number] 04/27/2020 08:05:00 AM EST [facility] Name Value Range Interpretation Code Description Data Eloisa rce(s) Supporting Document(s) Ferritin, Serum 211 ng/mL 15-150 Above high normal [facility] ID Date Data Source [id number] 04/27/2020 08:05:00 AM EST [facility] Name Value Range Interpretation Code Description Data Eloisa rce(s) Supporting Document(s) HBsAg Screen Negative Negative [facility] ID Date Data Source [id number] 04/26/2020 12:00:00 AM EST [facility] Aishwarya Tidwell Anp, Rnnp Patient Name:KUSHAL ALEX [id number] [facility] Date of : [address] Date of Exam: 04/26/2020CIRO Diamond [id number]#: Fax: [phone] EXAM: US ABDOMEN, LIMITED SINGLE ORGAN,QUADRANTCLINICAL INFORMATION: Elevated liver function tests.TECHNIQUE: Realtime hirsch scale and color B-mode examination using curvedarray transducer.FINDINGS:The liver demonstrates mild increased parenchymal echotexture suggestingfatty infiltration. No focal hepatic lesions are identified. The pancreasis normal in appearance. There is evidence for prior cholecystectomy. Nobiliary ductal dilatation is appreciated and the common bile duct measures5 mm diameter. The right kidney is normal in reniform shape, echotexture anvascularity without hydronephrosis. Right kidney measures 9.6 x 3.7 x 4.3cm (RI = 0.61). Visualized portions of the abdominal aorta and vena cavaappear normal. No ascites in the right upper quadrant.IMPRESSION:1. Hepatosteatosis.Accredited by the [employer] in General Ultrasound.REGLA Lindquist/Karrie you for referring KUSHAL ALEX to our office. Electronically Signed - THIAGO BURT MD 05/02/20 11:14 Name Value Range Interpretation Code Description Data Eloisa rce(s) Supporting Document(s) ID Date Data Source [id number] 04/18/2020 12:45:00 PM EST [facility] Name Value Range Interpretation Code Description Data Eloisa rce(s) Supporting Document(s) Follow Up [facility] YDMHDz5tKyPDWrXvAZBwYisVAYhcNAmoKWEaM8O4WZvbRd5KBHzzpeDvQSPjQd6+QSLjTI2yzc5rTEMk y [file] XdWV2OS4eKRxKIF7IsN59m1u8N+banking and finance instructor/56thphSfqHXm/OuViFqY9bXnY8FGrsz6ne+QynEAOJzyD33ObR [file] luis alberto/lQ7o2dWAgjfJovfBfUnXklA07+CUEwEEtiDeOyShs0zzFn0Lt6gYE4St1HVF6mL0ljg1ji6+SXwE [file] DF/hP+tQP0qFzviqry7a8RWuOEyc49e4cjiNXvkrXvS0XM3UC+rRlzMkfX324cjCkvtujI4oS5SQm/SALESFORCE ADMINISTRATOR YEk/wXx5W85+/gHY+b8ajLsbIPJyN1Y1kSWyNC8iiG/SnXV5DTqkLAOzuhsLEg7CiI0eHS1p80QiKJL/ 7r7D9UAHCeWe/V/LLaNo8Fhmj99TcDFT9B1jEzjf6A 4G4MkHzJvTvSzNT3QTXPl6Acinz3HtDtflazL83MZYVwaNDP+cq7ht5qkAxUKrbgyz4U/7s05bPUydNQ /yKSqjMfV6zFxjWrPAp6vtHa3CtpVDnTlSyxju0iKC4fYPE3Jbmjwo6TnbOCVfqAxHCAJb1qExLK+CJN 33XEmlhUPzCcrYUEtRNo64IkUEwEce+enf4+oaZjdE C5iPQ06I8Hy52yPdNDa561cUy5yA7ctZVhwJwMDSIy9QdUtcUVEZ4arsS5crSWxZ9jQhymSnio2uf2eL qoqfJbV5q76Ez2C+W0N4s36lBFEG3zNJBTLeR+TydGXU7iRMRwlwZuIaSbl3olKMTN51ZRTbl/jqf/zY 1wCj11t1K62Tx2gIM6q4vtSQNOjIail+n9UaL5HDtC 6vkH9uFmQUlRJLLwKTD/K0/+ccQbbqDjHKlJGjh1TCh+xEsokg4kx6A0tIVMK5S8DNvJwOImcX67ee/m general production laborer/JFGCC1Y5xO/9yn6rsRgFWBp3ETmfOOnIvlvXzYuR/gdVery0gIgtt/Gc3/g0KJG0NLnMnyMj8oXk 4ZJZtxPuRNr5DcJd2qdaSn0WwZSgs+p1plPPfqG1oT YPWHM0qxiZkg158p817NYiD6dCs3K5l9sTY2iuU/29IF1xbAY7KONilfhw+apbnwUiUp4LhiYJuZ+cXa 7f85bpnckqA5ARtg7gRz4a8/onfYePUDuN96HmV7AT/h6u1RnK4fQ/iyDUunXfqfX/uPcNhTZmJQWNh+ UIvJNaTkToepS3V/W64dFCFy+5+u6UDX/4v+XlEVFN h+9vrHQ0feHa6KTDxBgUFkY/Wv4eRijyl1GMcDI7hXg8CJl8E4JubLrFLCT13CQFU1ndTMZKSuEPc19N +CWjTTOe+m5yym/8mE2Te3YnlcKM6BmpN/zyM5lGaSOyTT0Mj5mrgCX49gqBgWyNyKgrC37ErQ38FIBr fl4bygD0rtB/yYLDYiQJjrAfQ/M0ciX+VpnCUJBZCv hwgtUQRlqTdByTDMa0+ZDyPF4LvIwXI+eKZLH37reqDI1s6zFhyq/NB3P23n258cKG3kLWoh0Mk/EVELIA/ [file] dYgcBQMzjWC17my9l6Jdh/4L1OoeJ8/library circulation department chief+N6p/YY8 [file] Won+vU1EjtW84Ew1BpT5mDGoqrwXPQjk7ZKPTcrGNiyjCo12EAEby9XRGEmRsb0vMtHeENoWAvW0gA70J 7Njh61i4P8TMoGVXdmMAA0Ng8FWw6DT/Z+1asisJjXy2LE9/sshK+3Y8AIM23wREAP2xtbCGniNeCP5c 4LfvoeH7Mecf0ahCwDIcywyTsReO9KNw9M7EPLzU7H 1tg53SplA78TpYVfifwEyq1vfKvApFVoeMxAM0k6z+LS3hvpuDwkW7/j//xA5//6bxe4jPxq0a4zDm1y EWzxi0uvUDCaPoBseNUKhcB31NN4fs7eA3WSlKSUVWI8+YM1JnEihMTvpmjbT8CTNi1JuShvuyqtEFKW zXHIO02T+ZQLX+myF7N638KHGpneeVm0eWNpjWCds9 5PHsfG0PA6aMVxm+w+Gkuc3rdmNCWmB9+8Pssy5O3EnSIL0Ejsa43GHF/gfyibFJwAi8oIQZ6j1Yz/Hydroelectric Production Manager [file] cdMC4S/RQFtlJnLBoWk0oBabWh2Uex0AcNsE+6a+Hydroelectric Production Manager [file] jSSgRum/banking and finance [file] mnCujb/Mr/Norma/QDSKZPIELiMJMEAsi1BXfsK8IEFmb BmrnggHoSJfevNtZU5y8RP+K4wMiAODhjSiPW0sDcVBZgtBJqn5GZGPvmPW6kQ54uEdOI4727PMSnHrz +row9RFfEUvhM474QHAXfzP66DJ21HpNGVctf2qiivbPLFOIC2aR2BiAPRJmyGG8tZH2OvQeCf+n/s9X jIgvhNkbJWalNepLIibyT9OJoW27p49cxXRucoC+Bc HTIKr7R4vGdM/qadeqXO0+R0WRswGWemgot0irKAkx+S81DvnTtWMroAtjTlZllZBWZQeAablp/oamNX i3RfSMq8FzsF64g/azrhC93mUEeMVLqLz1pzXqpQYlCHNVbh1l+high lead yarder/UstPDG3SCoCcELYzsPt+aON5H [file] yM+DzWWGFFPSBW/emergency doctor+PZuI6szLUorHS50Ku8wygVxreKMecWdh+aGv/OJGeLBcnZ7iHnpl4rnnZY+F3 [file] 3JjJZASCdIaS1Agq1fqLFAKtl69WQSNJjXYDXgtiQ9 wdVR3Iwq6VInTdl1RpWN4wPod70ZniaQn2oufshqeXrrYyb1Y/NcT7XKOEzr3sftU5x2COEAnbpJCl6m zrC+NjxeX9sBl9x9/uEApqBG2W6J7A5D94p3260JWrmnvca6rTPBidL4BaMyERvuzbjThxtmozqXNY54 gwG6U3bNRdXKZr48r9ymZoSPzx3Wk5olUcoeEItxMX A+rZlVYAC04Z1CKp96QvlPZ9VKb4qQEDkfX+2V65Gw26/jlYSvwLEOpegQLqdifv6ys5M1iduhNozAWr q4+iMmlwGCLRyzZkx1Q6T1iOwNwkLm/PxlV7rmvmUvhV5rOOKmF5q3beSYUjvNpZe0kGr8ZWE7IQHQ/7 FQHf/WHjcHl0CY/supervisor nut processing+v3CPij715UxvZgThPwVmqBwC rHP3rs1hGIUGB7oDHQPMwWf2Y+V7bMnTE5jPPv3eaKoUeFwOlJkSPhWwWbXaqW/5HqQu6L1hnbekMPLP Rfp07pI5wPGCTmpF9hmaLxGSfrSqnI8un6Sp22i0SQNzVPL5iwUw6hp3e/gIuEJ/e2B1jKGI0R/m2g0R jgniPklT08EwwHM3cxxK1O2YWx2X0TX3Edj2rfE67S dPhY+e0BZuOpKu+F0OGdtTgYz+pzMbzHpCKCHB282PybRj7xoV+qUkiE3uAVHu/+70W2md3o5PAzSEyB S7d2FmdOXhBFwxpizMbOTOK9gS6VEN70siXSPD6s2hoqFZiVJ/GtV3RPwruHsArR43HBma6kD4Q8E+CE mbr3bQoSfqeJIxZqf10gyNhxVMeGgl6/W+DgV1GtOo lutReIO8b+DN/yHVmhrAnod0ENUoZlGrsIgaw780kmMgdQTNdtgkT31cIaZa3U+NazJUx5cgFm7UtVk0 wBMY3HPRH0IwP2f1ew/SGH17IrRtRGoV2cKjrPQPhVwv0xKB+5NRXxdZvjgKJ4RBH9PZVx+SI/vpmH9X 5deM/h0tsWUlLIH/fEyyu4WYmMz23TnY7YHWgI/Shay awCKdEHwYgUsDbQTIrYFogvIlgdjHBGxsoMGZXDeApif2IzTnSXXIgpsDrUj8/YfhZjT+TXYa+aD/KAYLYN [file] Schedule Hanger/smL2/gbVpn1APybtuDReL8rj1Yrj1H0UaV6S9d [file] gcGKqq36K7XFzP5Ka/special weapons and tactics officer+SAfR4M+RHPB3BLqYLxyixMe6ifA6kvm/ZmkKEgqUscVQPsXe7iElmUatzaz [file] UlRU9G ID Date Data Source [id number] 03/24/2020 10:25:00 AM EDT [facility]) Name Value Range Interpretation Code Description Data Eloisa rce(s) Supporting Document(s) Laboratory test finding (navigational concept) Laboratory test result [facility]) ID Date Data Source [id number] 03/24/2020 10:25:00 AM EDT [facility] ([facility]) Name Value Range Interpretation Code Description Data Leoisa rce(s) Supporting Document(s) Hemoglobin A1c/Hemoglobin.total in Blood 5.6 % 4.8-5.6 [facility] <content>Prediabetes: 5.7 - 6.4</content >
<content>Diabetes: >6.4</content>
<content>Glycemic control for adults with diabetes: <7.0</content>
<content></content> ID Date Data Source [id number] 03/24/2020 10:25:00 AM EDT [facility] ([facility]) Name Value Range Interpretation Code Description Data Eloisa rce(s) Supporting Document(s) Cholesterol [Mass/volume] in Serum or Plasma 236 mg/dL 100-199 [facility] ([facility]) Triglyceride [Mass/volume] in Serum or Plasma 205 mg/dL 0-149 [facility] ([facility]) Cholesterol in HDL [Mass/volume] in Serum or Plasma 50 mg/dL [facility] ([facility]) Laboratory test finding (navigational concept) 37 mg/dL 5-40 [facility] ([facility]) Laboratory test finding (navigational concept) 149 mg/dL 0-99 [facility] ([facility]) Comment: Laboratory test result [facility] ([facility]) ID Date Data Source [id number] 03/24/2020 10:25:00 AM EDT [facility] Name Value Range Interpretation Code Description Data Eloisa rce(s) Supporting Document(s) Glucose [Mass/volume] in Serum or Plasma 89 mg/dL 65-99 [facility] ([facility]) Urea nitrogen [Mass/volume] in Serum or Plasma 15 mg/dL 8-27 [facility] ([facility]) eGFR If Africn Am 87 mL/min/1.73 [facility] ([facility]) eGFR If NonAfricn Am 75 mL/min/1.73 [facility] ([facility]) Creatinine [Mass/volume] in Serum or Plasma 0.76 mg/dL 0.57-1.00 [facility] ([facility]) Urea nitrogen/Creatinine [Mass Ratio] in Serum or Plasma 20 1 2-28 [facility] ([facility]) Sodium [Moles/volume] in Serum or Plasma 141 mmol/L 134-144 [facility] ([facility]) Potassium [Moles/volume] in Serum or Plasma 3.9 mmol/L 3.5-5.2 [facility] Chloride [Moles/volume] in Serum or Plasma 105 mmol/L 96-106 [facility] Calcium [Mass/volume] in Serum or Plasma 9.4 mg/dL 8.7-10.3 [facility] Carbon dioxide, total [Moles/volume] in Serum or Plasma 24 mmol/L 20 -29 [facility] Albumin [Mass/volume] in Serum or Plasma 4.0 g/dL 3.7-4.7 [facility] Protein [Mass/volume] in Serum or Plasma 6.2 g/dL 6.0-8.5 [facility] Globulin [Mass/volume] in Serum by calculation 2.2 g/dL 1.5-4.5 [facility] Albumin/Globulin [Mass Ratio] in Serum or Plasma 1.8 1.2-2.2 [facility] Bilirubin.total [Mass/volume] in Serum or Plasma 0.4 mg/dL 0.0-1.2 [facility] Aspartate aminotransferase [Enzymatic activity/volume] in Serum or Plasma 27 IU/L 0-40 [facility] ([facility] ) Alkaline phosphatase [Enzymatic activity/volume] in Serum or Plasma 66 IU/L 39-117 [facility] Alanine aminotransferase [Enzymatic activity/volume] in Seru m or Plasma 37 IU/L 0-32 [facility] ([facility]) ID Date Data Source [id number] 03/24/2020 10:25:00 AM EDT [facility] Name Value Range Interpretation Code Description Data Eloisa rce(s) Supporting Document(s) Leukocytes [#/volume] in Blood by Automated count 6.8 x10E3/uL 3.4-10 .8 [facility] Hematocrit [Volume Fraction] of Blood by Automated count 41.2 % 3 4.0-46.6 [facility] ([facility]) Erythrocytes [#/volume] in Blood by Automated count 4.72 x10E6/uL 3.7 7-5.28 [facility] ([facility]) Hemoglobin [Mass/volume] in Blood 13.9 g/dL 11.1-15.9 [facility] ([facility]) Erythrocyte mean corpuscular volume [Entitic volume] by Auto mated count 87 fL 79-97 [facility] ([facility]) Erythrocyte mean corpuscular hemoglobin concentration [Mass/volume] by Automated count 33.7 g/dL 31.5-35.7 [facility] Erythrocyte mean corpuscular hemoglobin [Entitic mass] by Automated count 29.4 pg 26.6-33.0 [facility] ([facility] ) Platelets [#/volume] in Blood by Automated count 256 x10E3/uL 150-450 [facility] ([facility]) Erythrocyte distribution width [Ratio] by Automated count 12.6 % 11.7-15.4 [facility] ([facility]) Monocytes/100 leukocytes in Blood by Automated count 6 % [facility] ([facility]) Lymphocytes/100 leukocytes in Blood by Automated count 37 % [facility] ([facility]) Neutrophils/100 leukocytes in Blood by Automated count 55 % [facility] ([facility]) Basophils/100 leukocytes in Blood by Automated count 0 % [facility] ([facility]) Immature cells [#/volume] in Blood Laboratory test result [facility] ([facility]) Eosinophils/100 leukocytes in Blood by Automated count 2 % [facility] ([facility]) Neutrophils [#/volume] in Blood by Automated count 3.7 x10E3/uL 1.4-7 .0 [facility] ([facility]) Lymphocytes [#/volume] in Blood 2.5 x10E3/uL 0.7-3.1 [facility] ([facility]) Eosinophils [#/volume] in Blood by Automated count 0.1 x10E3/uL 0.0-0 .4 [facility] ([facility]) Monocytes [#/volume] in Blood 0.4 x10E3/uL 0.1-0.9 [facility] ([facility]) Basophils [#/volume] in Blood by Automated count 0.0 x10E3/uL 0.0-0.2 [facility] ([facility]) Immature granulocytes/100 leukocytes in Blood by Automated count 0 % [facility] Immature granulocytes [#/volume] in Blood by Automated count 0.0 x10E3/uL 0.0-0.1 [facility] Morphology [Interpretation] in Blood Narrative Laboratory test result [facility] ([facility]) Nucleated erythrocytes/100 leukocytes [Ratio] in Blood by Automated count Laboratory test result [facility] ([facility]) ID Date Data Source [id number] 02/24/2020 09:08:00 AM EDT [facility] Name Value Range Interpretation Code Description Data Eloisa rce(s) Supporting Document(s) Laboratory test finding (navigational concept) Laboratory test result [facility] ([facility]) ID Date Data Source [id number] 02/24/2020 09:08:00 AM EDT [facility] Name Value Range Interpretation Code Description Data Eloisa rce(s) Supporting Document(s) Cholesterol [Mass/volume] in Serum or Plasma 258 mg/dL 100-199 [facility] ([facility]) Triglyceride [Mass/volume] in Serum or Plasma 208 mg/dL 0-149 [facility] ([facility]) Cholesterol in HDL [Mass/volume] in Serum or Plasma 52 mg/dL [facility] ([facility]) Laboratory test finding (navigational concept) 38 mg/dL 5-40 [facility] ([facility]) Laboratory test finding (navigational concept) 168 mg/dL 0-99 [facility] ([facility]) Comment: Laboratory test result [facility] ([facility]) ID Date Data Source [id number] 03/03/2020 09:12:00 PM EDT [facility] FASTING: UNKNOWNReceived: 02/26/2020 at 04:13:00 EZ: [facility],, [address] [place], [address], Abbey Quiñonez MD,PhD,DO Name Value Range Interpretation Code Description Data Eloisa rce(s) Supporting Document(s) Chymotrypsin [Enzymatic activity/mass] in Stool 8.2 U/g 2.3-51.4 [facility] This test was developed and its analytic al performancecharacteristics have been determined by [facility]. It has not beencleared or approved by FDA. This assay has been validatedpursuant to the CLIA regulations and is used for clinicalpurposes. ID Date Data Source [id number] 02/18/2020 04:06:00 PM EDT [facility] Name Value Range Interpretation Code Description Data Eloisa rce(s) Supporting Document(s) C difficile Toxins A+B, EIA Negative Negative [facility] ID Date Data Source [id number] 02/22/2020 08:05:00 AM EDT [facility] Name Value Range Interpretation Code Description Data Eloisa rce(s) Supporting Document(s) E coli Shiga Toxin EIA Negative Negative [facility] Salmonella/Shigella Screen Final report [facility] ID Date Data Source [id number] 02/22/2020 04:06:00 PM EDT [facility] Name Value Range Interpretation Code Description Data Eloisa rce(s) Supporting Document(s) Giardia lamblia Ag, EIA Negative Negative [facility] Ova + Parasite Exam Final report [facility] These results were obtained using wet pr eparation(s) and trichromestained smear. This test does not include testing for Cryptosporidiumparvum, Cyclospora, or Microsporidia. ID Date Data Source [id number] 02/24/2020 12:05:00 AM EDT [facility] Name Value Range Interpretation Code Description Data Eloisa rce(s) Supporting Document(s) Calprotectin, Fecal 18 ug/g 0-120 [facility] Concentration Interpretation Follo w-Up<16 - 50 ug/g Normal None>50 -120 ug/g Borderline Re-evaluate in 4-6 weeks >120 ug/g Abnormal Repeat as clinically indicated ID Date Data Source [id number] 02/28/2020 04:06:00 PM EDT [facility] Name Value Range Interpretation Code Description Data Eloisa rce(s) Supporting Document(s) Pancreatic Elastase, Fecal 430 ug Elast./g >200 [facility] Severe Pancreatic Insufficiency: <100 Moderate Pancreatic Insufficiency: 100 - 200 Normal: >200 ID Date Data Source [id number] 02/22/2020 08:05:00 AM EDT [facility] Name Value Range Interpretation Code Description Data Eloisa rce(s) Supporting Document(s) Result 1 [facility] No Salmonella or Shigella recovered. ID Date Data Source [id number] 02/22/2020 04:06:00 PM EDT [facility] Name Value Range Interpretation Code Description Data Eloisa rce(s) Supporting Document(s) Result 1 [facility] No ova, cysts, or parasites seen. One ne gative specimen does not rule out the possibility of aparasitic infection. ID Date Data Source [id number] 02/22/2020 08:05:00 AM EDT [facility] Name Value Range Interpretation Code Description Data Eloisa rce(s) Supporting Document(s) Result 1 [facility] No Campylobacter species isolated. ID Date Data Source [id number] 02/15/2020 10:30:00 AM EDT [facility] Name Value Range Interpretation Code Description Data Eloisa rce(s) Supporting Document(s) First [facility] RSDKWh8dLoCGDvSwPYSbSwaJRVnqMDayXMEnL0E4HXizLh0NBSsezjVbOPHuQw4+FZObWQ9hfx9rPZYj gMy [file] fence post cutter/hxvauOQ6yDO0Ds/4jBv6LjwI7OK6Ck1bSFVhnL [file] H+drier attendant+va7Sb3+AhTHt3Ydd63hEZfEaCnD3n+Nk/eVaEvXyzCJHA46z56st3hZWhml/LyGd4bbspR0pbc [file] h4Vl5a/tldhvpdN3v4cVWQO3o9vpEanNBz8C0Mz/special weapons and tactics officer [file] yMV4iCZdt42Bg7RweMx783FXsU3R/pJq31ZVhLT6Vptxc1F3q1A66crW2kG/library circulation department chief/tCYxTsgljTDMdAHZ [file] VSSYaYuhBmeC26oyZ97+Hydroelectric Production Manager/N2sdE+UaxPK6+mjMnkep1LMjec4Umj3cwm0wiw1MsGngYKkkTA8gtOFah [file] QCeWLZpSyITrPV0ufcHNXTQ0ZEvH5FZOzeq0i8e/Hydroelectric Production Manager [file] 78LjiZ7Fxkg/yw+yrvIoJH3I6jMs8fZAD1D9nYPkIoWAysFHUQx/ddx6kgSnoyAUWbUuNv7FKbWL+BUTTON FACING MACHINE OPERATOR [file] o54Hm0XJMKXhxyZIzg+supervisor nut processing+kwdH0URbmKQsF/05+crLfPgBgw0d2kXQyDqb4gLt7H+/XvE+E1WH/gZzir [file] prepress manager/jDsVlsPcUXNtNhejyMxMKjvisQWFY44/c10R62 [file] special weapons and tactics officer+i1j0QepGP6R2b4ARP6sUouEg9uPwsZyrP8ygsDNfNcenn3ptCw3vKroefAQ+oUVyS1t/cywoWtgUn [file] 2kJ2Xi/WE3fAjO8fHbN4J5Dh8TiZ3QRB6p1bl0I+ELECTRON BEAM OPERATOR [file] krPPp79mUlO+CDLU6aprnRsDVYBCXqjJB6cfuYujNqKOaHgN4lLljQewwKm0IMMw08svPUjHDU/yj+Hydroelectric Production Manager [file] tHv0QzKtBJj8cF3brMj8My+xs4YJuSB80B/RmKqGENT8c0PP78EmMvfR5BqQsBCQkIqxIuMLvKUv+Juan A [file] Incendiaries Supervisor/R6crvS2L1744F1bRpKIl9Mnv22QDV96HwITNZ5PTlZxw7HO2kN1ReS8Lhkf2f/Eyh/492bttkjxO [file] KSIf/I3rZ2EgufPoFn7efORhEy3kjm9l+D+yLM+José Miguel [file] yZa0esb+HyhZSR7chDOV0AD8Mu8RsAzU8MI/employment case manager+g5+SHGHhiDbBRiLYIejhrO0LEXT8AOukDYjUYCdN /1pkXOPic6IKAxuKFIccDgP8Z35941/mc4g2Gr912m4v7dO2MCsFZXFG9lYKdOAvl5xfMj5S/cHGgWf7 LJB31pjdKZ/6rBlEW6/J7zOBqvJo3K12pHMUDhID0j aRGIeEF1qHkGjNDlcBqCn2PUHeYimfdevZHla57U26Rp/V/lR68XDbwErLTSwnP6S/tkY6p/MpDP4WI6 F3zwtQSJ/LgP8Mqj8QQv7saIxKUdajvDhz/qEIRwyAlUKIe12Z0LxCl2OkhIL+VUo4RiwU4WhX6N8j5j racWzMy19ZKjwDPn1MsVYVhmrQBwqx4P+bIEeX8lMh E0pvRslHff/L0yCi17RPK8PSrPmORUAotZQRN3GuCOuwKOYIEoY3jb99lezvaLXq1UrbqZ/XHA5zn4Mf FVCrYkxORFk6TXQ6J7roBRQ+ZSKEpk/VLnh+/0ln/dYIuk7rMYi+HxvL+y/4diLSgOqIu7+dUm3Z5MC8 6mYSMND5tPvu5ksgYvmbimnHR2IMy/FEzIaqHhTkZl Mi3xFqxDc+8gZm0htdVikT1Hcif1phHCPRJ0dA6r/Hqz4rjx9hTpJWgPco36Tv+1pEi/5LTakxv4LJFY +QdWI0KqN85vGFK1MpeVnQGRE7dxfrJnHRFuehlIPoPHelSo0+SNgr9JEAu1jZNieeEdaaQ2KZfa8eRT YDAIztvZ+UktHyPVwlzFO2nCFLBfyZrIdS5VPQrc4D AVMsJhJh7FkeOHKHngHls4jIRbzFCYAmQQ25PBd8LLnjJWCGUI2oWAwI9DhxyagOMWYpSaRjnDhDp+1/ 6/Hr5vpmk9masKjeF0xmkg0YlwcHdOJfY8r1B2Fs4b6g9j5ZH8kZ8Y0YWXc5pD7Qvm7db8ZOGceMPFMn mrxQ6/[place]/Wdf8uhIusJXf8un1w70eFGf4ouyj63eQ [file] mSGPFRlypvskbd+animal hospital clerk/bb5pRaxqyMmUf9oeSFXkePTMTcHodiWnMPhSa2dvisTVqky24l28srLnVT0Sa [file] QaZNm2KhM4SNULGNhFN4VeHXQYBBO1ZpNLDKHwYl7m Ki8rxTJqOKVxPf3BstCqDEUoMPINX3MdeoIaBYzfTIjmOPCoVFJaSt1TZCwpKIEeHR0+UkL7luWnoE6Y cOmuFPHfSNEkADVzVVFRWO9DvCdLRSCbiKEM3gFUdh1Ae3tYRFqSRhCnaofrVtA8qG0x6eBA9BsIzwbi 3dYiRbEYJHMKOm8FSV9lb2UqYHTcPKkmsyJpDueZTCadyOJdsHnrUOPZCxs2PKM6Qr6ZEYLRA1L= ID Date Data Source [id number] 12/28/2019 01:58:00 PM EDT [facility] ([facility]) Name Value Range Interpretation Code Description Data Eloisa rce(s) Supporting Document(s) Laboratory test finding (navigational concept) Laboratory test result [facility] ([facility]) ID Date Data Source [id number] 12/28/2019 01:58:00 PM EDT [facility] Name Value Range Interpretation Code Description Data Eloisa rce(s) Supporting Document(s) Hemoglobin A1c/Hemoglobin.total in Blood 5.7 % 4.8-5.6 [facility] <content>Prediabetes: 5.7 - 6.4</content >
<content>Diabetes: >6.4</content>
<content>Glycemic control for adults with diabetes: <7.0</content>
<content></content> ID Date Data Source [id number] 12/28/2019 01:58:00 PM EDT [facility] Name Value Range Interpretation Code Description Data Eloisa rce(s) Supporting Document(s) Glucose [Mass/volume] in Serum or Plasma 86 mg/dL 65-99 [facility] ([facility]) Creatinine [Mass/volume] in Serum or Plasma 0.86 mg/dL 0.57-1.00 [facility] ([facility]) Urea nitrogen [Mass/volume] in Serum or Plasma 16 mg/dL 8-27 [facility] ([facility]) eGFR If NonAfricn Am 65 mL/min/1.73 [facility] NT ([facility]) eGFR If Africn Am 75 mL/min/1.73 [facility] ([facility]) Potassium [Moles/volume] in Serum or Plasma 3.9 mmol/L 3.5-5.2 [facility] ([facility]) Urea nitrogen/Creatinine [Mass Ratio] in Serum or Plasma 19 1 2-28 [facility] ([facility]) Sodium [Moles/volume] in Serum or Plasma 141 mmol/L 134-144 [facility] ([facility]) Carbon dioxide, total [Moles/volume] in Serum or Plasma 25 mmol/L 20 -29 [facility] ([facility]) Calcium [Mass/volume] in Serum or Plasma 9.8 mg/dL 8.7-10.3 [facility] ([facility]) Chloride [Moles/volume] in Serum or Plasma 101 mmol/L 96-106 [facility] Globulin [Mass/volume] in Serum by calculation 2.3 g/dL 1.5-4.5 [facility] Protein [Mass/volume] in Serum or Plasma 6.5 g/dL 6.0-8.5 [facility] ([facility]) Albumin [Mass/volume] in Serum or Plasma 4.2 g/dL 3.7-4.7 [facility] ([facility]) Albumin/Globulin [Mass Ratio] in Serum or Plasma 1.8 1.2-2.2 [facility] Bilirubin.total [Mass/volume] in Serum or Plasma 0.4 mg/dL 0.0-1.2 [facility] ([facility] Alkaline phosphatase [Enzymatic activity/volume] in Serum or Plasma 69 IU/L 39-117 [facility] Aspartate aminotransferase [Enzymatic activity/volume] in Serum or Plasma 16 IU/L 0-40 [facility] ([facility] ) Alanine aminotransferase [Enzymatic activity/volume] in Seru m or Plasma 18 IU/L 0-32 [facility] ([facility]) ID Date Data Source [id number] 12/28/2019 01:58:00 PM EDT [facility] ([facility]) Name Value Range Interpretation Code Description Data Eloisa rce(s) Supporting Document(s) Leukocytes [#/volume] in Blood by Automated count 7.1 x10E3/uL 3.4-10 .8 [facility] ([facility]) Erythrocytes [#/volume] in Blood by Automated count 4.87 x10E6/uL 3.7 7-5.28 [facility] ([facility]) Hemoglobin [Mass/volume] in Blood 13.9 g/dL 11.1-15.9 [facility] Hematocrit [Volume Fraction] of Blood by Automated count 43.2 % 3 4.0-46.6 [facility] ([facility] Erythrocyte mean corpuscular hemoglobin [Entitic mass] by Automated count 28.5 pg 26.6-33.0 [facility] ([facility] ) Erythrocyte mean corpuscular volume [Entitic volume] by Auto mated count 89 fL 79-97 [facility] ([facility]) Erythrocyte distribution width [Ratio] by Automated count 12.7 % 11.7-15.4 [facility] ([facility]) Erythrocyte mean corpuscular hemoglobin concentration [Mass/volume] by Automated count 32.2 g/dL 31.5-35.7 [facility] ([facility]) Lymphocytes/100 leukocytes in Blood by Automated count 36 % [facility] ([facility]) Platelets [#/volume] in Blood by Automated count 256 x10E3/uL 150-450 [facility] ([facility]) Neutrophils/100 leukocytes in Blood by Automated count 54 % [facility] ([facility]) Eosinophils/100 leukocytes in Blood by Automated count 2 % [facility] ([facility]) Monocytes/100 leukocytes in Blood by Automated count 7 % [facility] ([facility]) Immature cells [#/volume] in Blood Laboratory test result [facility] ([facility]) Basophils/100 leukocytes in Blood by Automated count 1 % [facility] ([facility]) Lymphocytes [#/volume] in Blood 2.6 x10E3/uL 0.7-3.1 [facility] ([facility]) Neutrophils [#/volume] in Blood by Automated count 3.8 x10E3/uL 1.4-7 .0 [facility] ([facility]) Monocytes [#/volume] in Blood 0.5 x10E3/uL 0.1-0.9 [facility] ([facility]) Immature granulocytes/100 leukocytes in Blood by Automated count 0 % [facility] ([facility]) Basophils [#/volume] in Blood by Automated count 0.1 x10E3/uL 0.0-0.2 [facility] ([facility]) Eosinophils [#/volume] in Blood by Automated count 0.1 x10E3/uL 0.0-0 .4 [facility] ([facility]) Nucleated erythrocytes/100 leukocytes [Ratio] in Blood by Automated count Laboratory test result [facility] ([facility]) Immature granulocytes [#/volume] in Blood by Automated count 0.0 x10E3/uL 0.0-0.1 [facility] ([facility]) Morphology [Interpretation] in Blood Narrative [facility] Procedure Social History Code Duration Value Status Description Data Source(s ) Smoking 04/03/2020 12:00:00 AM EDT Never Smoker completed Never S moker eCW1 ([facility]) Smoking 04/03/2020 12:00:00 AM EDT Never Smoker completed Never S moker eCW1 ([facility]) Smoking 11/17/2019 02:16:48 PM EDT Never smoked tobacco (findi ng) completed Never smoked tobacco (finding) [place] (Landon Pelletier [facility]) Smoking 10/28/2019 01:11:26 PM EDT Never smoked tobacco (findi ng) completed Never smoked tobacco (finding) [place] (Landon Pelletier MD [facility]) Vital Signs ID Date Data Source UNK Name Value Range Interpretation Code Description Data Source(s) Body mass index (BMI) [Ratio] 39.29 kg/m2 39.29 kg/m2 W1 ([facility]) Body height [in_i] W1 ([facility]) Body weight 201.2 [lb_av] 201.2 [lb_av] [facility] ([facility]) Body mass index (BMI) [Ratio] 38.0 kg/m2 38.0 k g/m2 [facility] ([facility]) Oxygen saturation in Arterial blood by Pulse oximetry 96 % 96 % [facility] ([facility]) Body weight 201.00 [lb_av] 201.00 [lb_av] [facility] ([facility]) Body height 61 [in_i] 61 [in_i] [facility] ([facility]) 5'1" Heart rate 82 /min 82 /min [facility] ([facility]) Diastolic blood pressure 74 mm[Hg] 74 mm[Hg] [facility] ([facility]) Systolic blood pressure 140 mm[Hg] 140 mm[Hg] [facility] Body mass index (BMI) [Ratio] 37.6 kg/m2 37.6 k g/m2 [facility] ([facility]) Oxygen saturation in Arterial blood by Pulse oximetry 97 % 97 % [facility] ([facility]) Body weight 199.00 [lb_av] 199.00 [lb_av] [facility] T ([facility]) Body height 61 [in_i] 61 [in_i] [facility] ([facility]) 5'1" Heart rate 82 /min 82 /min [facility] ([facility]) Diastolic blood pressure 90 mm[Hg] 90 mm[Hg] [facility] ([facility]) Systolic blood pressure 150 mm[Hg] 150 mm[Hg] M EDENT ([facility]) Diastolic blood pressure 80 mm[Hg] 80 mm[Hg] W1 ([facility]) Systolic blood pressure 122 mm[Hg] 122 mm[Hg] e CW1 ([facility]) Body mass index (BMI) [Ratio] 36.58 kg/m2 36.58 kg/m2 [facility] ([facility]) Body height 62 [in_i] 62 [in_i] W1 ([facility]) Body weight 200.0 [lb_av] 200.0 [lb_av] eCW1 ([facility]) Body mass index (BMI) [Ratio] 37.8 kg/m2 37.8 k g/m2 [facility] ([facility]) Oxygen saturation in Arterial blood by Pulse oximetry 99 % 99 % [facility] ([facility]) Air Body weight 200.00 [lb_av] 200.00 [lb_av] [facility] T ([facility]) Body height 61 [in_i] 61 [in_i] [facility] ([facility]) 5'1" Heart rate 80 /min 80 /min [facility] ([facility]) Diastolic blood pressure 70 mm[Hg] 70 mm[Hg] [facility] ([facility]) Systolic blood pressure 132 mm[Hg] 132 mm[Hg] M [facility] ([facility]) Diastolic blood pressure 78 mm[Hg] 78 mm[Hg] [facility] ([facility]) Systolic blood pressure 148 mm[Hg] 148 mm[Hg] M [facility] ([facility]) Patient Treatment Plan of Care Planned Activity Planned Date Details Description Data Source (s) Nystatin [id number] UNT/ML Topical Cream 03/16/2020 12:00:00 AM EDT eCW1 ([facility])
[2020-07-25] MEDS ORDERED: LIDOCAINE 5% (LIDODERM) PATCH TD ONE (15:45)
[2020-07-25] MEDS ORDERED: PERC5TAB12 PO (17:03)
[2020-07-25] MEDS ORDERED: ROBA750T4 PO (17:03)
[2020-07-25] MEDS ORDERED: LIDO5DIS41 TD (17:03)
[2020-07-25 17:15] VITALS: BP 133/61
[2020-07-25] MEDS ORDERED: **NOTE PATIENT COMMENT** MISC XX SCH (21:00)
== END 2020-07-25 17:17 | disposition home or self-care (01) ==
LOC: M ED 13:49 → EDBD 13:49 → M ED 17:17
DX: G89.29 Other chronic pain (principal); M54.9 Dorsalgia, unspecified; E66.9 Obesity, unspecified; I10 Essential (primary) hypertension; E78.5 Hyperlipidemia, unspecified; K21.9 Gastro-esophageal reflux disease without esophagitis; K58.9 Irritable bowel syndrome, unspecified; M48.00 Spinal stenosis, site unspecified; E21.3 Hyperparathyroidism, unspecified; Z86.718 Personal history of other venous thrombosis and embolism; Z79.899 Other long term (current) drug therapy; Z88.2 Allergy status to sulfonamides; Z88.5 Allergy status to narcotic agent; Z88.8 Allergy status to other drugs, medicaments and biological substances

== ENCOUNTER → 2020-08-01 | Outpatient (CLI) | payer OTHER ==
[~2020-08-01] MED LIST changes: +ACET-683 PO; +ACET-908 PO; +CARI1TAB7; +LIDO5DIS41 TD; +PERC5TAB12 PO; +ROBA750T4 PO
--- NOTE | 2020-08-01 13:14 | REP ---
INDICATION: PAIN, SWELLING LT LEG. COMPARISON: 07/25/2020 TECHNIQUE: Multiple ultrasonographic images of the deep venous structures of the left thigh were obtained from the level of the common femoral vein to the popliteal vein in the longitudinal and transverse scan planes along with Doppler interrogation and color flow Doppler imaging. FINDINGS: There is no abnormal echogenic material seen within any of the visualized deep venous structures that would suggest acute thrombosis. Coaptation is unremarkable throughout. Doppler interrogation shows an expected response to respiratory variability and augmentation. The color flow Doppler images show what appears to be a normal vascular pattern throughout. IMPRESSION: There is no ultrasonographic evidence of deep venous thrombosis involving any of the visualized deep venous structures of the left thigh as described above. There has been no change from the prior study on 07/25/2020. Accredited by the [employer] in Vascular Peripheral Ultrasound. <Electronically signed by Padilla Gamino > 08/01/20 2107
== END ==
LOC: M RAD 12:01
PROVIDERS: ATTEND Physician Assistant Medical
DX: M79.605 Pain in left leg (principal)

== ENCOUNTER → 2020-08-01 | Outpatient (CLI) | payer OTHER ==
--- NOTE | 2020-08-01 12:53 | REPVR ---
PROCEDURE INFORMATION: Exam: MR Lumbar Spine Without Contrast Exam date and time: 08/01/2020 12:32 PM Age: 80 years old Clinical indication: Low back pain; Additional info: Low back pain, US after mri TECHNIQUE: Imaging protocol: Multiplanar magnetic resonance images of the lumbar spine without intravenous contrast. COMPARISON: MRI-Spine, L.S. without con 10/29/2016 9:01 AM FINDINGS: Vertebrae: There is a moderate lumbar levo scoliotic curvature. There is 3 mm of grade 1 anterolisthesis of L4 with respect to L5. Normal vertebral body alignment is otherwise preserved. Vertebral body heights are within normal limits. Spinal cord: Normal signal. No cord compression. L1-L2: There is shallow disc bulging. There is moderate facet hypertrophy. There is mild right neural foraminal narrowing. L2-L3: There is diffuse disc bulging. There is moderate facet and ligamentous hypertrophy. There is mild bilateral neural foraminal narrowing. L3-L4: There is shallow disc bulging. There is moderate facet hypertrophy. There is xhsk-xi-plzdagth right and moderate left neural foraminal narrowing. L4-L5: There is disc bulging/uncovering related to listhesis. There is severe facet hypertrophy. There is asjh-hr-vwqzjalq bilateral neural foraminal narrowing. L5-S1: There is shallow disc bulging. There is severe facet hypertrophy asymmetric to the left. There is moderate to severe left neural foraminal narrowing. Disc material comes into close contact with the exiting left L5 nerve root. Soft tissues: Unremarkable. IMPRESSION: Degenerative disc disease and spondylosis in a background of pronounced levoscoliosis. At L5/S1, changes contribute to moderate to severe left neural foraminal narrowing, with disc material in close contact with the exiting left L5 nerve root. Electronically signed by: Agustina Rivas On 08/01/2020 12:53:42 PM
== END ==
LOC: M RAD 11:39
PROVIDERS: ATTEND Nurse Practitioner Adult Health
DX: M51.26 Other intervertebral disc displacement, lumbar region (principal); M51.27 Other intervertebral disc displacement, lumbosacral region

== ENCOUNTER 2022-09-08 15:26 | Observation (INO) | payer OTHER ==
[~2022-09-08] VITALS: Ht 167.6 cm; Wt 78.7 kg
[~2022-09-08 15:26] MED LIST changes: -ACET-908 PO; +ACET-910 PO
[2022-09-08] MEDS ORDERED: oxyCODONE 5MG TAB PO ONE (17:00)
[2022-09-08] MEDS ORDERED: methocarbamoL 750 MG TAB PO ONE (17:00)
[2022-09-08] MEDS ORDERED: LIDOCAINE 5% (LIDODERM) PATCH TD ONE (17:00)
[2022-09-09] MEDS ORDERED: VITA200032 PO (00:23)
[2022-09-09] MEDS ORDERED: METO1TAB32 PO (00:23)
[2022-09-09] MEDS ORDERED: XARE10TA PO (00:23)
[2022-09-09] MEDS ORDERED: MV-M1CAP8 PO (00:23)
[2022-09-09] MEDS ORDERED: HOME MED LIST COMPLETE! XX SCH (00:25)
[2022-09-09 00:37] LABS: HEMATOCRIT 44.5 % (36.0-47.0); HEMOGLOBIN 14.8 g/dl (12.0-15.5); MEAN CORPUSCULAR HEMOGLOBIN 29.8 pg (27.0-33.0); MEAN CORPUSCULAR HGB CONC 33.3 g/dl (32.0-36.5); MEAN CORPUSCULAR VOLUME 89.5 fl (80.0-96.0); PLATELET COUNT, AUTOMATED 253 10^3/uL (150-450); RED BLOOD COUNT 4.97 10^6/uL (4.00-5.40)
[2022-09-09 00:47] LABS: ALBUMIN 3.3 G/DL (3.2-5.2); ALKALINE PHOSPHATASE 68 U/L (46-116); ALT/SGPT 15 U/L (7.0-40); AST/SGOT 17 U/L (<34); BILIRUBIN,TOTAL 1.2 MG/DL (0.3-1.2); BLOOD UREA NITROGEN 20 MG/DL (9-23); CALCIUM LEVEL 9.5 MG/DL (8.3-10.6); CARBON DIOXIDE LEVEL 27 MMOL/L (20-31); CHLORIDE LEVEL 104 MMOL/L (98-107); CREATININE FOR GFR 0.75 MG/DL (0.55-1.30); GLOMERULAR FILTRATION RATE > 60.0 (>32); GLUCOSE, FASTING 111 MG/DL (74-106); SODIUM LEVEL 140 MMOL/L (136-145); TOTAL PROTEIN 6.6 G/DL (5.7-8.2)
[2022-09-09] MEDS ORDERED: MOM 30ML SUSPENSION UDC PO PRN (02:20)
[2022-09-09] MEDS ORDERED: ACETAMINOPHEN TAB 650MG DOSE (2X325MG) PO PRN (02:20)
[2022-09-09 03:00] VITALS: BP_SYST 116; BP_SYST 138; BP_DIAS 47; BP_DIAS 74
[2022-09-09 06:03] LABS: HEMATOCRIT 39.9 % (36.0-47.0); MEAN CORPUSCULAR HEMOGLOBIN 29.5 pg (27.0-33.0); MEAN CORPUSCULAR HGB CONC 32.6 g/dl (32.0-36.5); MEAN CORPUSCULAR VOLUME 90.5 fl (80.0-96.0); PLATELET COUNT, AUTOMATED 210 10^3/uL (150-450); RED BLOOD COUNT 4.41 10^6/uL (4.00-5.40); WHITE BLOOD COUNT 10.3 10^3/uL (4.0-10.0)
[2022-09-09 06:30] LABS: BLOOD UREA NITROGEN 21 MG/DL (9-23); CARBON DIOXIDE LEVEL 27 MMOL/L (20-31); CHLORIDE LEVEL 102 MMOL/L (98-107); CREATININE FOR GFR 0.77 MG/DL (0.55-1.30); GLOMERULAR FILTRATION RATE > 60.0 (>32); GLUCOSE, FASTING 109 MG/DL (74-106); POTASSIUM SERUM 3.5 MMOL/L (3.5-5.1); SODIUM LEVEL 137 MMOL/L (136-145)
[2022-09-09] MEDS: DOCUSATE SODIUM 100MG CAPSULE PO SCH ×2 (09:00→20:50)
[2022-09-09] MEDS: LIDOCAINE 5% (LIDODERM) PATCH TD SCH (09:55)
[2022-09-09] MEDS: EZETIMIBE 10MG TABLET (ZETIA) PO SCH (09:55)
[2022-09-09] MEDS: METOPROLOL SUCC *XL* 12.5MG PER 1/2 TAB (TopROL *XL*) PO SCH (09:55)
[2022-09-09] MEDS: RIVAROXABAN 10MG TAB (XARELTO) PO SCH (11:44)
[2022-09-09] MEDS: CYCLOBENZAPRINE 5MG TABLET PO PRN (13:19)
[2022-09-09] MEDS ORDERED: traMADol 50 MG TAB PO PRN (13:50)
[2022-09-09 14:00] VITALS: BP 100/48
[2022-09-09 20:00] VITALS: BP 134/65
[2022-09-10] MEDS: CYCLOBENZAPRINE 5MG TABLET PO PRN (01:23)
[2022-09-10] MEDS: traMADol 50 MG TAB PO PRN ×2 (01:24→09:51)
[2022-09-10 05:46] VITALS: BP 114/64
[2022-09-10 07:11] LABS: BASO % 0.1 % (0.0-1.0); HEMATOCRIT 40.7 % (36.0-47.0); HEMOGLOBIN 13.4 g/dl (12.0-15.5); LYMPH % 12.1 % (24.0-44.0); MEAN CORPUSCULAR HEMOGLOBIN 29.3 pg (27.0-33.0); MEAN CORPUSCULAR HGB CONC 32.9 g/dl (32.0-36.5); MEAN CORPUSCULAR VOLUME 89.1 fl (80.0-96.0); MONO # 0.3 10^3/uL (0.0-0.8); MONO % 3.4 % (2.0-8.0); NEUTROPHILS # 6.9 10^3/uL (1.5-8.5); PLATELET COUNT, AUTOMATED 249 10^3/uL (150-450); RED BLOOD COUNT 4.57 10^6/uL (4.00-5.40); WHITE BLOOD COUNT 8.2 10^3/uL (4.0-10.0)
[2022-09-10 07:29] LABS: BLOOD UREA NITROGEN 27 MG/DL (9-23); CALCIUM LEVEL 9.3 MG/DL (8.3-10.6); CARBON DIOXIDE LEVEL 24 MMOL/L (20-31); CHLORIDE LEVEL 104 MMOL/L (98-107); GLOMERULAR FILTRATION RATE > 60.0 (>32); GLUCOSE, FASTING 167 MG/DL (74-106); SODIUM LEVEL 137 MMOL/L (136-145)
[2022-09-10] MEDS: LIDOCAINE 5% (LIDODERM) PATCH TD SCH (09:00)
[2022-09-10] MEDS: DOCUSATE SODIUM 100MG CAPSULE PO SCH (09:00)
[2022-09-10] MEDS: RIVAROXABAN 10MG TAB (XARELTO) PO SCH (09:47)
[2022-09-10] MEDS: EZETIMIBE 10MG TABLET (ZETIA) PO SCH (09:47)
[2022-09-10 09:48] VITALS: BP 122/61
[2022-09-10] MEDS: METOPROLOL SUCC *XL* 12.5MG PER 1/2 TAB (TopROL *XL*) PO SCH (09:48)
[2022-09-10] MEDS ORDERED: CYCL5TAB PO ×2 (10:59→12:42)
[2022-09-10] MEDS ORDERED: MEDR4PAK PO ×2 (10:59→12:42)
[2022-09-10] MEDS ORDERED: TRAM50TA2 PO ×2 (10:59→12:42)
[2022-09-10] MEDS ORDERED: MIRA3350 PO (12:42)
== END 2022-09-10 13:00 | disposition home or self-care (01) ==
LOC: M ED 15:26 → M ED INP 15:27 → UNDOADMOB 09-09 02:16 → INTOOBSV 09-09 02:16 → M ED INP 09-09 02:16 → M MSPAV 09-09 02:54 → UNDODISOB 09-10 13:00
PROVIDERS: ADMIT Family Medicine; ATTEND Internal Medicine
DX: M54.16 Radiculopathy, lumbar region (principal); M48.07 Spinal stenosis, lumbosacral region; I10 Essential (primary) hypertension; D72.829 Elevated white blood cell count, unspecified; Z86.718 Personal history of other venous thrombosis and embolism; R26.2 Difficulty in walking, not elsewhere classified; Z79.899 Other long term (current) drug therapy; Z79.01 Long term (current) use of anticoagulants; Z88.5 Allergy status to narcotic agent; Z88.8 Allergy status to other drugs, medicaments and biological substances; Z88.2 Allergy status to sulfonamides

== ENCOUNTER → 2022-09-18 | Outpatient (CLI) | payer OTHER ==
[~2022-09-18] MED LIST changes: +CYCL5TAB PO; +MEDR4PAK PO; +METO1TAB32 PO; +MIRA3350 PO; +MV-M1CAP8 PO; +TRAM50TA2 PO; +VITA200032 PO; +XARE10TA PO
== END ==
LOC: M WUC 14:28
PROVIDERS: ATTEND Physician Assistant Medical
DX: R63.4 Abnormal weight loss (principal); R61 Generalized hyperhidrosis; J98.11 Atelectasis; M41.9 Scoliosis, unspecified

== ENCOUNTER 2022-11-01 15:04 | Emergency (ER) | payer OTHER ==
[~2022-11-01] VITALS: Ht 152.4 cm; Wt 80.0 kg
[2022-11-01] MEDS ORDERED: traMADol 50 MG TAB PO ONE (17:25)
[2022-11-01] MEDS ORDERED: LIDOCAINE 5% (LIDODERM) PATCH TD ONE (17:25)
[2022-11-01] MEDS ORDERED: diazePAM 5MG TABLET PO ONE (17:25)
[2022-11-01] MEDS ORDERED: TRAM50TA2 PO (20:16)
[2022-11-01] MEDS ORDERED: LIDO5DIS41 TD (20:16)
[2022-11-01 20:51] VITALS: BP 146/68
== END 2022-11-01 20:54 | disposition home or self-care (01) ==
LOC: M ED 15:04
DX: M54.50 Low back pain, unspecified (principal); M16.11 Unilateral primary osteoarthritis, right hip; I10 Essential (primary) hypertension; K58.9 Irritable bowel syndrome, unspecified; M48.061 Spinal stenosis, lumbar region without neurogenic claudication; Z86.718 Personal history of other venous thrombosis and embolism; Z87.442 Personal history of urinary calculi; Z88.1 Allergy status to other antibiotic agents; Z88.2 Allergy status to sulfonamides; Z88.5 Allergy status to narcotic agent; Z79.899 Other long term (current) drug therapy
CPT/HCPCS: 72192; 96374; 99284; J1100

== ENCOUNTER → 2023-01-27 | Outpatient (CLI) | payer OTHER | LOC: M RAD 09:28 | PROVIDERS: ATTEND Nurse Practitioner Adult Health | DX: R10.11 Right upper quadrant pain (principal); Z90.49 Acquired absence of other specified parts of digestive tract ==

== ENCOUNTER → 2023-07-14 | Outpatient (CLI) | payer OTHER ==
[~2023-07-14] MED LIST changes: +EZET10TA58 PO; -ZETI10TA16 PO
== END ==
LOC: M WUC 11:36
PROVIDERS: ATTEND Nurse Practitioner Adult Health
DX: J84.9 Interstitial pulmonary disease, unspecified (principal)

== ENCOUNTER → 2023-10-06 | Outpatient (CLI) | payer OTHER | LOC: M PLAIMG 12:24 | PROVIDERS: ATTEND Internal Medicine Critical Care Medicine | DX: R06.00 Dyspnea, unspecified (principal); R91.8 Other nonspecific abnormal finding of lung field ==

== ENCOUNTER 2024-01-29 09:43 | Day surgery (SDC) | payer OTHER ==
[~2024-01-29] VITALS: Ht 152.4 cm; Wt 87.7 kg
[~2024-01-29 09:43] MED LIST changes: +CLOB0.0526 TOP; +NYST1POW9 TOP
[2024-01-29] MEDS ORDERED: LIDOCAINE 2% 100MG/5ML SDV (FOR ANES.) As Ordered ONE (09:55)
[2024-01-29] MEDS ORDERED: propofoL 200 MG/20 ML VIAL As Ordered ONE (09:55)
[2024-01-29] MEDS ORDERED: fentaNYL 100 MCG/2 ML INJECTION As Ordered ONE (10:53)
[2024-01-29 11:20] VITALS: BP 144/71; TEMP 97.2; O2SAT 97
== END 2024-01-29 11:32 | disposition home or self-care (01) ==
LOC: M OPP 09:43
PROVIDERS: ATTEND Surgery
DX: K31.7 Polyp of stomach and duodenum (principal); K44.9 Diaphragmatic hernia without obstruction or gangrene; R10.13 Epigastric pain; I10 Essential (primary) hypertension; Z86.718 Personal history of other venous thrombosis and embolism; Z79.01 Long term (current) use of anticoagulants; Z79.631 Long term (current) use of antimetabolite agent; Z79.899 Other long term (current) drug therapy; Z88.2 Allergy status to sulfonamides; Z88.5 Allergy status to narcotic agent; Z88.8 Allergy status to other drugs, medicaments and biological substances
CPT/HCPCS: 43239; 88305; J3010

== ENCOUNTER 2024-07-15 06:35 | Day surgery (SDC) | payer OTHER ==
[~2024-07-15] VITALS: Ht 154.9 cm; Wt 88.9 kg
[~2024-07-15 06:35] MED LIST changes: -CYCL5TAB PO; +CYCL5TAB4 PO; +NYST1POW3 TOP; -NYST1POW9 TOP
[2024-07-15] MEDS ORDERED: LIDOCAINE 2% 100MG/5ML SDV (FOR ANES.) As Ordered ONE (07:04)
[2024-07-15] MEDS ORDERED: propofoL 200 MG/20 ML VIAL As Ordered ONE (07:04)
[2024-07-15] MEDS ORDERED: LABETALOL 100MG/20ML VIAL As Ordered ONE (07:18)
[2024-07-15 07:53] VITALS: TEMP 97.3
[2024-07-15 08:10] VITALS: BP 142/65; O2SAT 96
== END 2024-07-15 08:25 | disposition home or self-care (01) ==
LOC: M OPP 06:35
PROVIDERS: ATTEND Surgery
DX: K57.30 Diverticulosis of large intestine without perforation or abscess without bleeding (principal); R19.4 Change in bowel habit; K64.2 Third degree hemorrhoids; Z88.5 Allergy status to narcotic agent; Z88.2 Allergy status to sulfonamides; Z79.01 Long term (current) use of anticoagulants; Z79.899 Other long term (current) drug therapy; Z86.718 Personal history of other venous thrombosis and embolism
CPT/HCPCS: 45380; 88305; J1920

== ENCOUNTER → 2025-03-24 | Outpatient (CLI) | payer OTHER ==
[~2025-03-24] MED LIST changes: +CARI-555; -CARI1TAB7; +LIDO1ADH93 TD; -LIDO5DIS41 TD
== END ==
LOC: M RAD 08:06
PROVIDERS: ATTEND Nurse Practitioner Adult Health
DX: K75.81 Nonalcoholic steatohepatitis (NASH) (principal)

== ENCOUNTER → 2025-03-29 | Outpatient (CLI) | payer OTHER | LOC: M SLEEP HO 11:27 | PROVIDERS: ATTEND Internal Medicine Critical Care Medicine | DX: G47.33 Obstructive sleep apnea (adult) (pediatric) (principal) ==